=== PATIENT | female | born 1965 | race Caucasian/White ===

== ENCOUNTER 2023-02-09 14:01 | Outpatient (CLI) | payer OTHER, SELFPAY ==
[2023-02-09 14:27] LABS: Basophils Absolute Auto 0.1 K/mm3 (0.0-0.1); Basophils Percent Auto 0.5 % (0.2-1.2); Eosinophils Absolute Auto 0.2 K/mm3 (0-0.3); Eosinophils Percent Auto 1.8 % (0-4.4); Hematocrit 45.3 % (37.0-47.0); Hemoglobin 14.8 g/dL (12.0-15.0); Immature Granulocyte Absolute 0.03 K/mm3 (0.00-0.031); Immature Granulocyte Percent A 0.3 % (0-0.5); Lymphocytes Absolute Auto 2.94 K/mm3 (0.9-3.2); Lymphocytes Percent Auto 30.6 % (18.3-44.2); Mean Corpuscular HGB Conc 32.7 g/dl (32-36); Mean Platelet Volume 11.2 fl (7.4-10.4); Monocytes Absolute Auto 0.8 K/mm3 (0.1-0.6); Neutrophils Absolute Auto 5.7 K/mm3 (1.3-6.7); Neutrophils Percent Auto 58.8 % (45.5-73.1); Platelet Count Result 207 k/mm3 (150-375); Red Blood Count 4.77 M/mm3 (4.2-5.4); Red Cell Distribution Width 13.8 % (11.5-14.5); White Blood Count 9.6 K/mm3 (4.5-10.0)
[2023-02-09 14:32] LABS: Blood Urea Nitrogen 15 mg/dL (8-26); Carbon Dioxide 27 mmol/L (22-30); Chloride 105 mmol/L (98-109); Estimated Glomerular Filt Rate 57; Glucose 150 mg/dL (70-105); Ionized Calcium (POC) 1.19 mmol/L (1.11-1.31); Potassium 4.5 mmol/L (3.5-4.9); Sodium 142 mmol/L (138-146)
[2023-02-09 16:32] LABS: Alanine Aminotransferase 81 U/L (6-35); Albumin Level 4.5 g/dL (3.5-5.1); Alkaline Phosphatase 99 U/L (38-126); Anion Gap 8 mmol/L (8-16); Aspartate Amino Transferase 77 U/L (14-36); Bilirubin,Total 0.8 mg/dL (0.2-1.3); Blood Urea Nitrogen 16 mg/dL (7-17); Calcium 9.4 mg/dL (8.4-10.2); Carbon Dioxide 27 mmol/L (22-30); Chloride 106 mmol/L (98-107); Estimated Glomerular Filt Rate > 60; Glucose 146 mg/dL (65-110); Potassium 4.5 mmol/L (3.4-5.0); Sodium 141 mmol/L (137-145)
== END 2023-02-09 14:02 | disposition home or self-care (01) ==
PROVIDERS: Visit Provider Internal Medicine Hematology & Oncology
DX: D68.61 Antiphospholipid syndrome (principal)
CPT/HCPCS: 36415; 80047; 80053; 85025

== ENCOUNTER 2024-07-15 13:29 | Outpatient (CLI) | payer OTHER, SELFPAY ==
[2024-07-15 13:56] LABS: Basophils Absolute Auto 0.1 K/mm3 (0.0-0.1); Basophils Percent Auto 0.7 % (0.2-1.2); Eosinophils Absolute Auto 0.2 K/mm3 (0-0.3); Eosinophils Percent Auto 2.2 % (0-4.4); Hematocrit 43.2 % (37.0-47.0); Hemoglobin 14.4 g/dL (12.0-15.0); Immature Granulocyte Absolute 0.04 K/mm3 (0.00-0.031); Immature Granulocyte Percent A 0.4 % (0-0.5); Lymphocytes Absolute Auto 3.15 K/mm3 (0.9-3.2); Lymphocytes Percent Auto 30.8 % (18.3-44.2); Mean Corpuscular HGB Conc 33.3 g/dl (32-36); Mean Corpuscular Hemoglobin 31.6 pg (26-34); Mean Corpuscular Volume 94.9 fl (80-100); Mean Platelet Volume 10.6 fl (7.4-10.4); Monocytes Absolute Auto 0.9 K/mm3 (0.1-0.6); Monocytes Percent Auto 8.3 % (2.6-8.5); Neutrophils Absolute Auto 5.9 K/mm3 (1.3-6.7); Neutrophils Percent Auto 57.6 % (45.5-73.1); Platelet Count Result 198 k/mm3 (150-375); Red Blood Count 4.55 M/mm3 (4.2-5.4); Red Cell Distribution Width 13.2 % (11.5-14.5); White Blood Count 10.2 K/mm3 (4.5-10.0)
[2024-07-15 13:59] LABS: Blood Urea Nitrogen 18 mg/dL (8-26); Carbon Dioxide 28 mmol/L (22-30); Chloride 105 mmol/L (98-109); Estimated Glomerular Filt Rate > 60; Glucose 104 mg/dL (70-105); Ionized Calcium (POC) 1.19 mmol/L (1.11-1.31); Potassium 4.3 mmol/L (3.5-4.9); Sodium 143 mmol/L (138-146)
== END 2024-07-15 13:30 | disposition home or self-care (01) ==
LOC: ANHLAB 13:31
PROVIDERS: PCP Nurse Practitioner; Visit Provider Internal Medicine Hematology & Oncology
DX: R76.0 Raised antibody titer (principal)
CPT/HCPCS: 36415; 80047; 85025

== ENCOUNTER 2024-07-23 11:00 | Outpatient (CLI) | payer OTHER, SELFPAY ==
--- OUTSIDE RECORDS SUMMARY | 2024-07-23 12:35 | XMS_ITS | Encounter Summary ---
Author Organization [facility] Address [facility] [place] [address] Care Team Providers Care Powerhouse Oiler Name Role Phone Ewa Spencer COSMETICS AND TOILETRIES SALESPERSON Primary Care Provider [phone] Dia Madera Primary Care Provider [phone] Misha Bishop MD Unavailable [phone] Encounter Details Date Type Department Care Team (Latest Contact Info) Description 01/01/2018 Abstract [facility] Hill Merino MD Social History Tobacco Use Types Packs/Day Years Used Date Smoking Tobacco: Every Day Cigarettes 1 35 Smokeless Tobacco: Never Alcohol Use Standard Drinks/Week Comments Yes 0 (1 standard drink = 0.6 oz pur e alcohol) rarely Comments No Sex and Gender Information Value Date Recorded Sex Assigned at Not on file Legal Sex Female 3:06 PM CDT Gender Identity Not on file Sexual Orientation Not on file documented as of this encounter Plan of Treatment Upcoming Encounters Date Type Department Care Team (Latest Contact Info) Description 01/30/2025 7:30 AM CDT Hospital Encounter [facility] One [place] [facility] [place] [id number] Aaron Mcdonald MD [address] [address] 01/30/2025 7:30 AM CDT - 01/30/2025 8:00 AM CDT Surgery [facility] Endo/[place] [address] Aaron Mcdonald MD [address] [address] COLONOSCOPY SCREENING Scheduled Procedures Name Priority Associated Diagnoses Date/Ti me COLONOSCOPY SCREENING Screening for colon cancer Hx of colonic polyps 01/30/2025 7:30 AM CDT documented as of this encounter Visit Diagnoses Not on filedocumented in this encounter Additional Health Concerns Infection Onset Date Last Indicated Resolved Time COVID-19 Rule Out 03/23/2021 03/23/2021 03/23/2021 9:32 AM LOGISTICS AND PLANNING MANAGER COVID-19 Rule Out 03/23/2021 03/23/2021 03/24/2021 1:28 AM LOGISTICS AND PLANNING MANAGER documented as of this encounter Care Teams Powerhouse Oiler Relationship Specialty Start Date End Date Ewa Spencer NP PCP - General NURSE PRACTITIONER 04/19/17 07/22/19 Dia Maedra APNP [address] [place] [id number] PCP - General NURSE PRACTITIONER 07/23/19 Misha Bishop MD [address] [place] [address] [place] [phone] HEMATOLOGY/ONCOLOGY 12/15/21 documented as of this encounter
--- OUTSIDE RECORDS SUMMARY | 2024-07-23 12:35 | XMS_ITS | Encounter Summary ---
Author Organization [facility] Address [address] [place] [address] Care Team Providers Care Wax Specialist Name Role Phone Unavailable Primary Care Provider Unavailabl e Prior Encounters Date Type Department Care Team Description 05/27/2019 Converted CPS Chart Documents [facility] [address] [place] [address] <No scans attached> 05/27/2019 Converted 13x Documents [facility] [address] [place] [address] <No scans attached> Plan of Treatment Not on file Procedures Procedure Name Priority Date/Time Associated Diagnosis Comments 20 PONTIC - PFG - POST Routine 9 2:00 AM BEDSPREAD INSPECTOR 18 PONTIC - PFG - POST Routine 9 2:00 AM BEDSPREAD INSPECTOR 19 RETAINER CROWN - PFG - POST Routine 04/02/2019 2:00 AM BEDSPREAD INSPECTOR 10 CORE BUILDUP, INCLUDING ANY PINS WHEN REQUIRED Routine 04/02/2019 2:00 AM BEDSPREAD INSPECTOR 3 MOD AMALGAM 3 SURFACE Routine 04/02/20 19 2:00 AM BEDSPREAD INSPECTOR 2 MO AMALGAM 2 SURFACE Routine 9 2:00 AM BEDSPREAD INSPECTOR 18 ENDODONTIC THERAPY, MOLAR TOOTH (EXCLUDING FINAL RESTORATIONIST) Routine 04/02/2019 2:00 AM BEDSPREAD INSPECTOR 14 ENDODONTIC THERAPY, MOLAR TOOTH (EXCLUDING FINAL RESTORATIONIST) Routine 04/02/2019 2:00 AM BEDSPREAD INSPECTOR 10 ENDODONTIC THERAPY, ANTERIOR TOOTH (EXCLUDING FINAL RESTORATIONIST) Routine 04/02/2019 2:00 AM BEDSPREAD INSPECTOR 18 CROWN PFM POST Routine 04/02/2019 2:0 0 AM BEDSPREAD INSPECTOR 15 CROWN PFM POST Routine 04/02/2019 2:0 0 AM BEDSPREAD INSPECTOR 14 CROWN PFM POST Routine 04/02/2019 2:0 0 AM BEDSPREAD INSPECTOR 31 CROWN PFM POST Routine 04/02/2019 2:0 0 AM BEDSPREAD INSPECTOR 30 CROWN PFM POST Routine 04/02/2019 2:0 0 AM BEDSPREAD INSPECTOR ORAL HYGIENE INSTRUCTIONS Routine 2018 2:00 AM BEDSPREAD INSPECTOR TOPICAL APPLICATION OF FLUORIDE VARNISH Routine 04/02/2019 2:00 AM BEDSPREAD INSPECTOR PROPHYLAXIS - ADULT Routine 04/02/2019 2 :00 AM BEDSPREAD INSPECTOR COMPREHENSIVE ORAL EVALUATION - NEW OR ESTABLISHED PATIENT Routine 04/02/2019 2:00 AM BEDSPREAD INSPECTOR PANORAMIC RADIOGRAPHIC IMAGE Routine 04/02/2019 2:00 AM BEDSPREAD INSPECTOR INTRAORAL PHOTO Routine 04/02/2019 2:00 AM BEDSPREAD INSPECTOR INTRAORAL PHOTO Routine 04/02/2019 2:00 AM BEDSPREAD INSPECTOR INTRAORAL PHOTO Routine 04/02/2019 2:00 AM BEDSPREAD INSPECTOR INTRAORAL PHOTO Routine 04/02/2019 2:00 AM BEDSPREAD INSPECTOR Visit Diagnoses Not on file
--- OUTSIDE RECORDS SUMMARY | 2024-07-23 12:35 | XMS_ITS | Clinical Summary ---
Author Organization [facility] Address [address] [place] [address] Care Team Providers Care Airline Lounge Receptionist Name Role Phone Dia Madera Primary Care Provider [phone] Source Comments [facility],non-owned Affiliates and Associated Physician Practices is amultiple site organization consisting of ambulatory clinics and hospital sitesin [place], [place], [place] and [place]. This disclosure is being madepursuant to the Care Everywhere program and may not contain all information available regarding this patient. Last updated 18.[facility] Allergies No known active allergies Medications * Be aware that medications may not be up to date on this document. Alwaysverify current medications with the patient. Medication Sig Dispensed Refills Start Date End Date Status aspirin (Aspirin) 81 MG chew tablet Take 1 (one) tablet by mouth once daily 10/19/2023 Active Trulicity 1.5 MG/0.5ML injection 1.5 (one and one-half) mg every 7 days 10/19/2023 Active Social History Tobacco Use Types Packs/Day Years Used Date Smoking Tobacco: Never Assessed Sex and Gender Information Value Date Recorded Sex Assigned at Not on file Gender Identity Not on file Sexual Orientation Not on file Plan of Treatment Upcoming Encounters Date Type Department Care Team (Late st Contact Info) Description 10/18/2024 2:20 PM CDT Office Visit [facility] - Endocrinology [address] [place] [address], [place] [phone] Josef Qiu MD [address] [place] [address] [place] [address] Health Maintenance Due Date Last Done Comments COLOGUARD (AGES 45-75) - COLON CA SCREENING 1964 COLON MONITORING 1964 COLONOSCOPY - COLON CA SCREENING 1964 CT COLONOGRAPHY - COLON CA SCREENING 1964 Colorectal Cancer Screening 1964 FIT - COLON CA SCREENING 1964 FLEX SIG - COLON CA SCREENING 1964 PAP SMEAR 1964 HIV SCREENING 01/16/1979 HEPATITIS C SCREENING 01/12/1982 DTAP/TDAP/TD VACCINES (1 - Tdap) 01/16/1983 PNEUMOCOCCAL VACCINE 50+ (1 of 2 - PCV) 01/16/1983 PNEUMOCOCCAL VACCINE (1 of 2 - PCV) 01/16/1983 ZOSTER VACCINE (1 of 2) 01/16/2014 COVID-19 VACCINE ( season) 2024 03/12/2021, 07/25/2020, 07/04/2020 INFLUENZA VACCINE (#1) 2024 , 04/29/2021, 01/30/2020, Additional history exists DEPRESSION SCREENING 05/08/2024 MAMMOGRAM 08/17/2025 08/18/2023, 09/2022, 10/27/2020 LIPID TESTING 08/31/2028 09/01/2023, 06/20/2023 Respiratory Syncytial Virus (RSV) Vaccine Pt: or over 60 yrs (1 - 1-dose 75+ series) 01/16/2039 HEPATITIS B VACCINE Aged Out No longe r eligible based on patient's age to complete this topic HIB VACCINE Aged Out No longer eligi ble based on patient's age to complete this topic HPV VACCINE Aged Out No longer eligi ble based on patient's age to complete this topic MENINGOCOCCAL (Group B) VACCINE SHARED DECISION-MAKING Aged Out No longer eligible based on patient's age to complete this topic MENINGOCOCCAL GROUPS A/C/Y/W VACCINE Aged Out No longer eligible based on patient's age to complete this topic Care Teams Airline Lounge Receptionist Relationship Specialty Start Date End Date Dia Madera [address] [place], [place] [phone] PCP - General Nurse Practitioner 10/19/23
--- OUTSIDE RECORDS SUMMARY | 2024-07-23 12:35 | XMS_ITS | Encounter Summary ---
Author Organization [facility] - [facility] Address [address] [place] [address] Care Team Providers Care Steel Pourer Helper Name Role Phone Dia Madera Primary Care Provider [phone] Misha Bishop MD Unavailable [phone] Encounter Details Date Type Department Care Team (Late st Contact Info) Description 06/01/2022 MyCBrightLinet Message Enc [facility] Medical Group Diabetes [facility] Endocrin[place] [address] [place] [address] Gabe Cotton MD Cortisol Social History Tobacco Use Types Packs/Day Years Used Date Smoking Tobacco: Former Cigarettes 1 35 0 02/03/1987 - 02/03/2022 Smokeless Tobacco: Never Comments:Goal is to quit smo nestor by feb 03 Alcohol Use Standard Drinks/Week Comments Yes 0 (1 standard drink = 0.6 oz pur e alcohol) Drink occasionally PHQ-2 Answer Date Recorded PHQ-2 Score - If the patient scores above 3, please move on to questions 3-9 0 02/21/2022 Comments No Sex and Gender Information Value Date Recorded Sex Assigned at Not on file Legal Sex Female 3:06 PM CDT Gender Identity Not on file Sexual Orientation Not on file COVID-19 Exposure Response Date Recorded In the last 10 days, have yo u been in contact with someone who was confirmed or suspected to have Coronavirus/COVID-19? No / Unsure 06/02/2022 2:54 PM DECOMMISSIONING WELL SITE MANAGER documented as of this encounter Plan of Treatment Upcoming Encounters Date Type Department Care Team (Latest Contact Info) Description 01/30/2025 7:30 AM CDT Hospital Encounter [facility] [place] [address] [facility] [address] 01/30/2025 7:30 AM CDT - 01/30/2025 8:[address] [facility] [address] Aaron Mcdonald MD [address] [address] COLONOSCOPY SCREENING Scheduled Procedures Name Priority Associated Diagnoses Date/Ti me COLONOSCOPY SCREENING Screening for colon cancer Hx of colonic polyps 01/30/2025 7:30 AM CDT documented as of this encounter Visit Diagnoses Not on filedocumented in this encounter Additional Health Concerns Assessment Noted Time PHQ-9 Depression Total Score: 7 04/29/20 21 9:48 AM DECOMMISSIONING WELL SITE MANAGER documented as of this encounter Care Teams Steel Pourer Helper Relationship Specialty Start Date End Date Dia Madera APNP [address] [place] [address] PCP - General NURSE PRACTITIONER 07/23/19 Misha Bishop MD [address] [place] [phone] HEMATOLOGY/ONCOLOGY 12/15/21 documented as of this encounter
--- OUTSIDE RECORDS SUMMARY | 2024-07-23 12:35 | XMS_ITS | Encounter Summary ---
Author Organization [facility] Address [facility] [place] [address] Care Team Providers Care Novelty Chain Maker Name Role Phone Ewa Spencer NP Primary Care Provider [phone] Dia Madera Primary Care Provider [phone] Misha Bishop MD Unavailable [phone] Encounter Details Date Type Department Care Team (Late st Contact Info) Description 08/14/2017 Community Orders [facility] EPICCARE LINK Zane Lemus MD [facility] [address] [address] Social History Tobacco Use Types Packs/Day Years [...] Description 01/30/2025 7:30 AM CDT Hospital Encounter [facility] One Day Services [place], [place] [address] Aaron Mcdonald MD [address] [address] 01/30/2025 7:30 AM CDT - 01/30/2025 8:00 AM CDT Surgery [facility] [place] [address] Aaron Mcdonald MD 3 [facility] [address] [place] [address] COLONOSCOPY SCREENING Scheduled Procedures Name Priority Associated Diagnoses Date/Ti me COLONOSCOPY SCREENING Screening for colon cancer Hx of colonic polyps 01/30/2025 7:30 AM CDT documented as of this encounter Visit Diagnoses Not on filedocumented in this encounter Additional Health Concerns Infection Onset Date Last Indicated Resolved Time COVID-19 Rule Out 03/23/2021 03/23/2021 03/23/2021 9:32 AM PHOTOGRAPHER AERIAL COVID-19 Rule Out 03/23/2021 03/23/2021 03/24/2021 1:28 AM PHOTOGRAPHER AERIAL documented as of this encounter Care Teams Novelty Chain Maker Relationship Specialty Start Date End Date Ewa Spencer NP PCP - General NURSE PRACTITIONER 04/19/17 07/22/19 Dia Madera APNP [address] [place] [address] PCP - General NURSE PRACTITIONER 07/23/19 Misha Bishop MD [address] [place] [address] [place] [phone] HEMATOLOGY/ONCOLOGY 12/15/21 documented as of this encounter
--- OUTSIDE RECORDS SUMMARY | 2024-07-23 12:35 | XMS_ITS | Clinical Summary ---
Author Organization [facility] [place] [address] [place] [address] Care Team Providers Care Cable Splicer Helper Name Role Phone Unavailable Primary Care Provider Unavailabl e Social History Tobacco Use Types Packs/Day Years Used Date Smoking Tobacco: Never Assessed Comments Unknown Sex and Gender Information Value Date Recorded Sex Assigned at Not on file Legal Sex Female 5:17 PM PST Gender Identity Not on file Sexual Orientation Not on file Plan of Treatment Not on file
--- OUTSIDE RECORDS SUMMARY | 2024-07-23 12:35 | XMS_ITS | Encounter Summary ---
Author Organization [facility] Address [facility] [place] [address] Care Team Providers Care Event Promoter Name Role Phone Dia Madera Primary Care Provider [phone] Misha Bishop MD Unavailable [phone] Encounter Details Date Type Department Care Team (Latest Contact Info) Description 07/15/2024 Scan HEALTH INFO [facility] Scanned, Doc Med Group Social History Tobacco Use Types Packs/Day Years Used Date Smoking Tobacco: Former Cigarettes Q uit: 02/03/1987 Passive Smoke Exposure: Past Smokeless Tobacco: Never Comments:Quit February 03 a t 9 pm Alcohol Use Standard Drinks/Week Comments Not Currently 0 (1 standard drink = 0.6 oz pur e alcohol) Drink occasionally PHQ-2 Answer Date Recorded Patient Health Questionnaire-2 Score 0 02/05/2024 Comments No Sex and Gender Information Value Date Recorded Sex Assigned at Not on file Legal Sex Female 3:06 PM CDT Gender Identity Not on file Sexual Orientation Not on file documented as of this encounter Plan of Treatment Upcoming Encounters Date Type Department Care Team (Latest Contact Info) Description 01/30/2025 7:30 AM CDT Hospital Encounter [facility] One Day [place], [place] [address] Aaron Mcdonald MD [address] [facility] [address] [place] [phone] 01/30/2025 7:30 AM CDT - 01/30/2025 8:00 AM CDT Surgery [facility] [place]o/[place] [address] Aaron Mcdonald MD [address] [address] COLONOSCOPY SCREENING Scheduled Procedures Name Priority Associated Diagnoses Date/Ti me COLONOSCOPY SCREENING Screening for colon cancer Hx of colonic polyps 01/30/2025 7:30 AM CDT documented as of this encounter Visit Diagnoses Not on filedocumented in this encounter Additional Health Concerns Assessment Noted Time PHQ-9 Depression Total Score: 0 08/31/19 24 1:55 PM CDT documented as of this encounter Care Teams Event Promoter Relationship Specialty Start Date End Date Dia Madera APNP [address] [place] [address] PCP - General NURSE PRACTITIONER 07/23/19 Misha Bishop MD [address] [place] [phone] HEMATOLOGY/ONCOLOGY 12/15/21 documented as of this encounter
--- OUTSIDE RECORDS SUMMARY | 2024-07-23 12:35 | XMS_ITS | Clinical Summary ---
Author Organization [facility] Address [address] [facility] [place] [address] Care Team Providers Care Tile And Mottle Supervisor Name Role Phone Unavailable Primary Care Provider Unavailabl e Allergies Active Allergy Reactions Criticality Noted Date Comments Egg Nausea and Vomiting,Unknown Medium 02/24/20 18 Gluten Nausea and Vomiting,Unknown Medium 07/29/19 18 Medications albuterol sulfate 90 mcg/Actuation inhaler Take 2 Puffs by inhalation every 6 hours as needed. 1 Active cholecalciferol , Vitamin D3, 125 mcg (5,000 unit) Capsule Take 5,000 Units by mouth daily. 0 Active empagliflozin-m etFORMIN (Synjardy) 12.5-1,000 mg tablet 1 Active fluticasone propion-salmete roL (Advair HFA) 115-21 mcg/actuation HFA Aerosol Inhaler 1 Active triamcinolone acetonide (KENALOG) 0.1 % Cream Apply to affected area 2 times daily. 1 Active aspirin (ECOTRIN EC) 81 mg Tablet, Delayed Release (E.C.) Take 81 mg by mouth daily. 2 Active Trulicity 3 mg/0.5 mL injection Inject 3 mg by subcutaneous injection every 7 days. 5 Active Active Problems Problem Noted Date Diagnosed Date Antiphospholipid antibody syndrome 10/08/2021 Encounters Date Type Department Care Team Description 07/21/2024 11:15 AM CDT Ancillary Procedure [facility] [address] [place] [address] Reji Guidry DPM Osteochondroma 07/19/2024 Telephone [facility] [address] [place] [address] Misha Bishop MD Lab Authorization 07/16/2024 External Device Data ST[facility] ABSTRACTION Provider, Abstract 07/16/2024 External Device Data [facility] ABSTRACTION Provider, Abstract 07/16/2024 Orders Only [facility] [address] [place] [address] Misha Bishop MD 07/15/2024 2:15 PM CDT Office Visit [facility] [address] [place] [address] Misha Bishop MD Antiphospholipid antibody positive (Primary Dx) 07/15/2024 External Device Data [facility] ABSTRACTION Provider, Abstract 07/13/2024 External Device Data [facility] ABSTRACTION Provider, Abstract 07/12/2024 External Device Data [facility] ABSTRACTION Provider, Abstract 07/10/2024 External Device Data [facility] ABSTRACTION Provider, Abstract 06/25/2024 External Device Data [facility] ABSTRACTION Provider, Abstract 05/29/2024 External Device Data [facility] ABSTRACTION Provider, Abstract 05/29/2024 External Device Data [facility] ABSTRACTION Provider, Abstract 05/14/2024 External Device Data [facility] ABSTRACTION Provider, Abstract from Last 3 Months Family History Medical History Relation Name Comments Pancreatic Cancer Father Relation Name Status Comments Brother 1 Alive Brother 2 Alive Brother 3 Alive Father metastesized to lung and brain Mother Alive Sister 1 Alive Sister 2 Alive Son 1 Alive Son 2 Alive Social History Tobacco Use Types Packs/Day Years Used Date Smoking Tobacco: Every Day Cigarettes Smokeless Tobacco: Never Tobacco Cessation:Ready to Q uit: Not Asked; Counseling Given: Not Answered Comments:trying to quit Alcohol Use Standard Drinks/Week Comments Yes 0 (1 standard drink = 0.6 oz pur e alcohol) occasional Comments Unknown Sex and Gender Information Value Date Recorded Sex Assigned at Not on file Legal Sex Female 9:28 AM CDT Gender Identity Not on file Sexual Orientation Not on file Last Filed Vital Signs Vital Sign Reading Time Taken Comments Blood Pressure 122/85 07/15/2024 2:07 PM CDT Pulse 99 07/15/2024 2:07 PM CDT Temperature 36.8 C (98.3 F) 07/15/2024 2:07 PM CDT Respiratory Rate 16 07/15/2024 2:07 PM CDT Oxygen Saturation 97% 07/15/2024 2:07 PM CDT Inhaled Oxygen Concentration - - Weight 63.6 kg (140 lb 3.2 oz) 07/15/2024 2:07 P M CDT Height 157.5 cm (5' 2) 10/08/2021 10:33 AM CDT Body Mass Index 25.64 10/08/2021 10:33 AM CDT Plan of Treatment Upcoming Encounters Date Type Department Care Team (Late st Contact Info) Description 08/06/2024 4:30 PM CDT Telephone Check Up [facility] [address] [place] [address] Misha Bishop MD [address] [place] [address] Health Maintenance Due Date Last Done Comments DIABETES ANNUAL FOOT EXAM 01/16/1982 DIABETES MICROALBUMIN ANNUAL SCREEN 01/16/1982 LDL CHOLESTEROL ANNUAL 01/16/1982 CERVICAL CANCER SCREENING 01/16/1994 DIABETES ANNUAL RETINAL EXAM 06/30/2007 06/30/2006 FIT-DNA Q 3 years 01/16/2009 FIT/FOBT Q 1 year 01/16/2009 Flex Sig/CT Colonography Q 5 years 01/16/2009 ZOSTER VACCINE (1 of 2) 01/16/2014 INFLUENZA VACCINE (#1) 2023 , 01/30/2020, 02/01/2016, Additional history exists COVID-19 Vaccine ( season) 2024 03/12/2021, 07/25/2020, 07/04/2020 RSV VACCINE (60+ or ) (1 - Risk 60-74 years 1-dose series) 2024 BREAST CANCER SCREENING 08/17/2024 08/18/19 24, 08/10/2022, 10/27/2020, Additional history exists DIABETES HBA1C Q 6 MONTHS 10/11/2024 04/12/2024 COLORECTAL SCREENING 02/25/2025 02/25/2015 Colorectal Cancer Screening 02/25/2025 DTAP/TDAP/TD VACCINES (3 - Td or Tdap) 06/03/2026 06/03/2016, 05/08/2016 HEPATITIS B VACCINES Aged Out No long er eligible based on patient's age to complete this topic Procedures Procedure Name Priority Date/Time Associated Diagnosis Comments MRI FOOT WO CONTRAST LEFT Routine 07/21/2024 12:17 PM CDT Osteochondroma BASIC METABOLIC PANEL Routine 07/15/2024 10:32 AM CDT from Last 3 Months Results * MRI FOOT WO CONTRAST LEFT (07/21/2024 12:17 PM CDT) Anatomical Region Laterality Modality Ankle / Foot Magnetic Resonan ce 07/21/2024 12:1 7 PM CDT Impressions 07/22/2024 9:07 AM CDT IMPRESSION: 1. 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 Consider a follow-up radiograph in six months to document stability. 2. Low-grade stress fracture of the second metatarsal at the head neck junction. This corresponds to the skin marker. 3. Second metatarsophalangeal joint osteoarthritis. 4. Fourth tarsometatarsal joint osteoarthritis. Narrative 07/22/2024 9:07 AM CDT Examination: MRI foot without contrast left HISTORY: Osteochondroma. TECHNIQUE: Multiple and multisequence noncontrast MRI of the left forefoot. FINDINGS: No comparisons. There is a 19.7 x 5.6 x 4.1 mm in hyperintense lesion in the midshaft of the first metatarsal. Given the patient's history this is most likely sales representative of a low-grade chondroid lesion such as enchondroma radiographic comparison would be helpful to confirm the internal architecture. There is mild fourth proximal metatarsal bone marrow edema at the fourth tarsometatarsal joint consistent with osteoarthritis. 4. Findings of the skin marker there is osteoarthritis of the second metatarsophalangeal joint with a small joint effusion. There is also periosteal bone marrow edema at this level and a low-grade stress fracture is probable. The bone marrow and cortex have normal signal at this location. Intrinsic muscles of the foot are normal. Sensory flexor tendons are normal. There is mild first metatarsal phalangeal joint osteoarthritis. Procedure Note Natalio Sheth MD - 07/22/2024 Examination: MRI foot without contrast left HISTORY: Osteochondroma. TECHNIQUE: Multiple and multisequence noncontrast MRI of the left forefoot. FINDINGS: No comparisons. There is a 19.7 x 5.6 x 4.1 mm in hyperintense lesion in the midshaft of the first metatarsal. Given the patient's history this is most likely sales representative of a low-grade chondroid lesion such as enchondroma radiographic comparison would be helpful to confirm the internal architecture. There is mild fourth proximal metatarsal bone marrow edema at the fourth tarsometatarsal joint consistent with osteoarthritis. 4. Findings of the skin marker there is osteoarthritis of the second metatarsophalangeal joint with a small joint effusion. There is also periosteal bone marrow edema at this level and a low-grade stress fracture is probable. The bone marrow and cortex have normal signal at this location. Intrinsic muscles of the foot are normal. Sensory flexor tendons are normal. There is mild first metatarsal phalangeal joint osteoarthritis. IMPRESSION: 1. 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 Consider a follow-up radiograph in six months to document stability. 2. Low-grade stress fracture of the second metatarsal at the head neck junction. This corresponds to the skin marker. 3. Second metatarsophalangeal joint osteoarthritis. 4. Fourth tarsometatarsal joint osteoarthritis. Reji DOYLEM MR ORDERABLES Paula l Result * BASIC METABOLIC PANEL (07/15/2024 10:32 AM CDT) Blood Misha Bishop MD CHEMISTRY ORDERABLES Final Resu lt from Last 3 Months Insurance [facility]
--- OUTSIDE RECORDS SUMMARY | 2024-07-23 12:36 | XMS_ITS | Encounter Summary ---
Author Organization [facility] Address [facility] [place] [address] Care Team Providers Care Fur Polisher Name Role Phone Dia Madera Primary Care Provider [phone] Misha Bishop MD Unavailable [phone] Encounter Details Date Type Department Care Team (Late st Contact Info) Description 08/02/2023 Push Health Message Enc [facility] . [place] [address] [place], [place] [id number] [facility] Schedule Appointment: Overdue Physical Social History Tobacco Use Types Packs/Day Years Used Date Smoking Tobacco: Former Cigarettes Q uit: 02/03/1987 Smokeless Tobacco: Never Comments:Quit February 03 a t 9 pm Alcohol Use Standard Drinks/Week Comments Not Currently 0 (1 standard drink = 0.6 oz pur e alcohol) Drink occasionally PHQ-2 Answer Date Recorded Patient Health Questionnaire-2 Score 0 06/27/2022 Comments No Sex and Gender Information Value Date Recorded Sex Assigned at Not on file Legal Sex Female 3:06 PM CDT Gender Identity Not on file Sexual Orientation Not on file documented as of this encounter Plan of Treatment Upcoming Encounters Date Type Department Care Team (Latest Contact Info) Description 01/30/2025 7:30 AM CDT Hospital Encounter [facility] [place] [address] Aaron Mcdonald MD 3 [facility] [address] [place] [address] 01/30/2025 7:30 AM CDT - 01/30/2025 8:00 AM CDT Surgery [facility] Endo/[place] [address] Aaron Mcdonald MD 3 [facility] [address] [place] [address] COLONOSCOPY SCREENING Scheduled Procedures Name Priority Associated Diagnoses Date/Ti me COLONOSCOPY SCREENING Screening for colon cancer Hx of colonic polyps 01/30/2025 7:30 AM CDT documented as of this encounter Visit Diagnoses Not on filedocumented in this encounter Additional Health Concerns Assessment Noted Time PHQ-9 Depression Total Score: 8 06/27/19 23 3:09 PM STORE TEAM LEADER documented as of this encounter Care Teams Fur Polisher Relationship Specialty Start Date End Date Dia Madera APNP [address] [place] [address] PCP - General NURSE PRACTITIONER 07/23/19 Misha Bishop MD [address] [facility] [address] [place] [address] HEMATOLOGY/ONCOLOGY 12/15/21 documented as of this encounter
--- OUTSIDE RECORDS SUMMARY | 2024-07-23 12:36 | XMS_ITS | Encounter Summary ---
Author Organization [facility] Address [facility] [place] [address] Care Team Providers Care Offset Second Press Operator Name Role Phone Dia Madera Primary Care Provider [phone] Misha Bishop MD Unavailable [phone] Encounter Details Date Type Department Care Team (Late st Contact Info) Description 06/26/2023 MyChart Message Enc [facility] Medical [facility] Family and Sports Medicine - [place] [address] [place] [address] Dia Madera APNP [address] [place] [address] Nephrology Referral Social History Tobacco Use Types Packs/Day Years [...] 01/30/2025 7:30 AM CDT Hospital Encounter [facility] [place] [address] [facility] [address] 01/30/2025 7:30 AM CDT - 01/30/2025 8:00 AM CDT Surgery [facility] [place] [address] [facility]cdonald MD [address] [facility] [address] COLONOSCOPY SCREENING Scheduled Procedures Name Priority Associated Diagnoses Date/Ti me COLONOSCOPY SCREENING Screening for colon cancer Hx of colonic polyps 01/30/2025 7:30 AM CDT documented as of this encounter Visit Diagnoses Not on filedocumented in this encounter Additional Health Concerns Assessment Noted Time PHQ-9 Depression Total Score: 8 06/27/19 23 3:09 PM SAS ADMINISTRATOR documented as of this encounter Care Teams Offset Second Press Operator Relationship Specialty Start Date End Date Dia Madera APNP [address] [place] [address] PCP - General NURSE PRACTITIONER 07/23/19 Misha Bishop MD [address] [place] [address] [place] [phone] HEMATOLOGY/ONCOLOGY 12/15/21 documented as of this encounter
--- OUTSIDE RECORDS SUMMARY | 2024-07-23 12:36 | XMS_ITS | Encounter Summary ---
Author Organization [facility] Address [facility] [place] [address] Care Team Providers Care Margarine Churn Operator Name Role Phone Dia Madera Primary Care Provider [phone] Misha Bishop MD Unavailable [phone] Encounter Details Date Type Department Care Team (Late st Contact Info) Description 04/16/2024 Jibot Message Enc [facility] Medical [facility] Family and Sports Medicine - [place] [address] [place] [address] Dia Madera APNP [address] [place] [address] Posting of results Social History Tobacco Use Types Packs/Day Years [...] Encounter [facility] [place] [address] Aaron Mcdonald MD [address] [address] 01/30/2025 7:30 AM CDT - 01/30/2025 8:00 AM CDT Surgery [facility] [place] [address] Aaron Mcdonald MD [address] [address] COLONOSCOPY SCREENING Scheduled Procedures Name Priority Associated Diagnoses Date/Ti me COLONOSCOPY SCREENING Screening for colon cancer Hx of colonic polyps 01/30/2025 7:30 AM CDT documented as of this encounter Visit Diagnoses Not on filedocumented in this encounter Additional Health Concerns Assessment Noted Time PHQ-9 Depression Total Score: 0 08/31/19 24 1:55 PM CDT documented as of this encounter Care Teams Margarine Churn Operator Relationship Specialty Start Date End Date Dia Madera APNP [address] [place] [address] PCP - General NURSE PRACTITIONER 07/23/19 Misha Bishop MD [address] [place] [phone] HEMATOLOGY/ONCOLOGY 12/15/21 documented as of this encounter
--- OUTSIDE RECORDS SUMMARY | 2024-07-23 12:36 | XMS_ITS | Encounter Summary ---
Author Organization [facility] Address [facility] [place] [address] Care Team Providers Care Senior Administrative Services Officer Name Role Phone Dia MaderaOBEY Primary Care Provider [phone] Misha Bishop MD Unavailable [phone] Encounter Details Date Type Department Care Team (Late st Contact Info) Description 06/22/[address] Smarter Learn [employer] [address] [facility] Family and Sports Medicine - [place] [address] [place] [address] [facility] Provider Ozempic Social History Tobacco Use Types Packs/Day Years [...] Description 01/30/2025 7:30 AM CDT Hospital Encounter [facility] [place] [address] Aaron Mcdonald MD [address] [address] 01/30/2025 7:30 AM CDT - 01/30/2025 8:00 AM CDT Surgery [facility] Endo/[place] [address] Aaron Mcdonald MD [address] [address] COLONOSCOPY SCREENING Scheduled Procedures Name Priority Associated Diagnoses Date/Ti me COLONOSCOPY SCREENING Screening for colon cancer Hx of colonic polyps 01/30/2025 7:30 AM CDT documented as of this encounter Visit Diagnoses Not on filedocumented in this encounter Additional Health Concerns Assessment Noted Time PHQ-9 Depression Total Score: 8 06/27/19 23 3:09 PM FLAT KNITTER HELPER documented as of this encounter Care Teams Senior Administrative Services Officer Relationship Specialty Start Date End Date Dia Madera APNP [address] [place] [address] PCP - General NURSE PRACTITIONER 07/23/19 Misha Bsihop MD [facility] [address] HEMATOLOGY/ONCOLOGY 12/15/21 documented as of this encounter
--- OUTSIDE RECORDS SUMMARY | 2024-07-23 12:36 | XMS_ITS | Clinical Summary ---
Author Organization [facility] at [facility] Address [address] [place] [address] Care Team Providers Care Pharmacy Services Director Name Role Phone Ewa Spencer NP Primary Care Provider [phone] Allergies Active Allergy Reactions Criticality Noted Date Comments Egg Stomach upset,Nausea And Vomiting,Unknown Medium 02/23/2018 Gluten Stomach upset,Nausea And Vomiting,Unknown Medium 07/28/2017 Medications acetaminophen (TYLENOL) 500 mg tablet Take by mouth 5 Active albuterol HFA (PROVENTIL HFA,VENTOLIN HFA,PROAIR HFA) 90 mcg/actuation inhaler Inhale 2 puffs every 6 (six) hours as needed 1 Active azelastine (ASTELIN) 137 mcg (0.1 %) nasal spray Administer 2 sprays into affected nostril(s) 2 (two) times a day 1 Active cholecalciferol (VITAMIN D-3) 5,000 unit capsule Take 5,000 Units by mouth daily 0 Active cyclobenzaprine (FLEXERIL) 5 mg tablet Take 5 mg by mouth 2 (two) times a day as needed 1 Active escitalopram (LEXAPRO) 10 mg tablet Take 10 mg by mouth daily 0 Active ketoconazole (NIZORAL) 2 % cream 1 Active meloxicam (MOBIC) 15 mg tablet Take 15 mg by mouth daily as needed Active metFORMIN (GLUCOPHAGE) 500 mg tablet Take 500 mg by mouth 2 times daily 0 Active triamcinolone (KENALOG) 0.1 % cream Apply topically 2 (two) times a day 1 Active multivitamin tablet,chewable Indications:gum mies Take by mouth Active varenicline (CHANTIX) 1 mg tabletIndicatio ns:Smoking Cessation Take 1 tablet (1 mg total) by mouth 2 (two) times a day Take with full glass of water. 60 tablet 1 1 Active Synjardy 12.5-1,000 mg tablet 2 Active fluconazole (DIFLUCAN) 150 mg tablet 2 Active fluticasone propion-salmete roL (ADVAIR HFA) 115-21 mcg/actuation inhaler Inhale 2 puffs 2 (two) times a day 1 Active varenicline (CHANTIX PEGGY) 0.5 mg (11)- 1 mg (42) tablet Use as directed on package instructions; try to quit smoking after 1 week. 42 tablet 2 Active varenicline (CHANTIX) 1 mg tabletIndicatio ns:Smoking Cessation Take 1 tablet (1 mg total) by mouth 2 (two) times a day Take with full glass of water. 60 tablet 4 2 Active clonazePAM (KlonoPIN) 0.5 mg tabletIndicatio ns:REM sleep behavior disorder Take 1 tablet (0.5 mg total) by mouth nightly 90 tablet 3 2 Active Active Problems Problem Noted Date Diagnosed Date REM sleep behavior disorder 06/17/2021 Assessment & Plan (05/23/2022 2:03 PM SUSPENSION CORD TIER): Patient continue clonazepam 0.5 mg p.o. Q bedtime. Assessment & Plan (02/08/2022 3:43 PM CDT): Patient continue clonazepam 0.5 mg p.o. Q bedtime. Assessment & Plan (08/16/2021 3:11 PM CDT): Patient continue clonazepam 0.5 mg p.o. Q bedtime. Assessment & Plan (06/17/2021 4:24 PM SUSPENSION CORD TIER): I have ordered Klonopin 0.5 mg at bedtime to see if this helps with the sleepwalking and sleep eating. This medication may also make her drowsy enough to help with the insomnia symptoms CHUN (obstructive sleep apnea) 02/15/2021 Assessment & Plan (05/23/2022 2:03 PM SUSPENSION CORD TIER): I did send an order over to [employer] to send us a copy of her compliance report. Assessment & Plan (02/08/2022 4:15 PM CDT): The patient is willing to resume the use of her CPAP. Assessment & Plan (08/16/2021 3:10 PM CDT): Patient continue to wear her CPAP at 6 cm water pressure while sleeping. Patient's DME is [employer]. Assessment & Plan (06/17/2021 4:25 PM SUSPENSION CORD TIER): Due to the patient stating that her pressure seems to be too high, I have decreased the pressure to 6 cm water pressure. The patient denied need for supplies. DME company [employer]. I have also ordered the patient to be refitted for mask to see if this may help with her compliance. The patient was educated on the need to wear the CPAP machine at least 4 hours a night on 70% of the nights. Assessment & Plan (02/15/2021 4:01 PM CDT): The patient is scheduled for nocturnal polysomnogram CPAP titration study on March 26. The patient will begin CPAP therapy after that study is completed. Primary insomnia 09/28/2020 Assessment & Plan (05/23/2022 2:01 PM SUSPENSION CORD TIER): The patient states that her sleeping has improved since she has stop smoking. Assessment & Plan (02/08/2022 4:14 PM CDT): The patient states that her sleeping has improved since she has stop smoking. Assessment & Plan (08/16/2021 3:11 PM CDT): The patient was asked to cut out her naps. Assessment & Plan (06/17/2021 4:25 PM SUSPENSION CORD TIER): Patient will continue with cognitive behavior therapy for insomnia. Patient was educated that CPAP therapy may improve insomnia symptoms. Assessment & Plan (02/15/2021 4:00 PM CDT): The patient will continue with cognitive behavior therapy and start CPAP therapy after her nocturnal polysomnogram. This should improve her insomnia. Assessment & Plan (10/29/2020 3:35 PM CDT): The patient continues to have insomnia despite implementing cognitive behavioral therapy. Hopefully, decreasing her nicotine intake will also help the insomnia. Her sister told her on a recent vacation that she is snoring and I will proceed with a nocturnal polysomnogram with a split night protocol if necessary and no MSLT. Assessment & Plan (09/28/2020 11:27 AM CDT): The patient states that she did sleep will recently on a vacation. Stress may be playing a part in her insomnia. We did discuss cognitive behavioral therapy and I recommended trying to quit smoking and to stop using caffeine. I also recommended starting an exercise program. I did give her a brochure that is published by the [place] [employer] regarding understanding insomnia. She will follow-up here in 1 month. Personal history of tobacco use 09/28/2020 Assessment & Plan (05/23/2022 2:02 PM SUSPENSION CORD TIER): The patient did stop smoking on January. I have ordered another CT scan for after April 02, 2023. Assessment & Plan (02/08/2022 4:15 PM CDT): The patient did stop smoking on February 03. The patient did not get her screening CT scan completed in November. I did place another order in the patient is going to get it done soon. Assessment & Plan (08/16/2021 3:13 PM CDT): Chantix was reordered. The patient is aware there was a recall in the past but there may be a new lot that has been made that the patient would be able to take. The patient was encouraged to decrease her smoking end goal to stop totally. The patient will complete a CT scan of the chest due to her smoking history at the end of November. Assessment & Plan (06/17/2021 4:26 PM SUSPENSION CORD TIER): The patient obtained a lung cancer screening CT at [place], we are waiting the results. The patient was encouraged to decrease the number of cigarettes use per day with ultimate goal of quitting. The patient was also provided options for alternative therapy to quit smoking Assessment & Plan (02/15/2021 4:00 PM CDT): The patient was educated on the need to decrease the number of cigarette usage per day with ultimate goal of quitting. The patient is going to continue with this support group for tobacco cessation. Assessment & Plan (10/29/2020 3:35 PM CDT): The patient would like to try to quit smoking and I have ordered the Chantix starter pack and continuation pack for her to use. She will contact CT scheduling to arrange the screening chest CT. Assessment & Plan (09/28/2020 11:27 AM CDT): The patient has a 30 pack-year history of smoking and is interested in the chest CT lung cancer screening program. I will order a chest CT. Wheezing 09/28/2020 Assessment & Plan (05/23/2022 2:03 PM SUSPENSION CORD TIER): Patient continue to use Advair one puff twice a day. Patient continue to use her albuterol inhaler as needed up to 4 times a day for shortness of breath. Assessment & Plan (02/08/2022 3:43 PM CDT): Patient continue to use Advair one puff twice a day. Patient continue to use her albuterol inhaler as needed up to 4 times a day for shortness of breath. Assessment & Plan (08/16/2021 3:13 PM CDT): Patient continue to use her Advair one puff twice a day. Patient continue to use her albuterol inhaler as needed up to 4 times a day for shortness of breath. Assessment & Plan (02/15/2021 4:00 PM CDT): The patient states that she does have a rare occasional wheezing. She denies shortness of breath or cough at this time. The patient is going to attempt to decrease the number cigarette use to see if this might help with her symptoms. A methacholine challenge will be considered in the future. Assessment & Plan (10/29/2020 3:36 PM CDT): The patient states that she does occasionally wheeze but never has shortness of breath. I will hold off on a methacholine challenge at this point since she is asymptomatic and is going to try to quit smoking. Assessment & Plan (09/28/2020 11:26 AM CDT): The patient has a 30 pack year history of smoking and wheezing. I will order full PFTs with a 6 minutes walk test. Immunizations Immunization Administration Dates Next Due Influenza, Quadrivalent, Spl it, Intramuscular 03/04/2019 Influenza, Quadrivalent, Spl it, Preservative Free, Intramuscular 01/30/2020,03/04/2019,02/28/2017,04/03 Pfizer SARS-CoV-2 Monovalent Vaccination (12+ Yrs) PURPLE 07/25/2020,07/04/2020 Pneumococcal Conjugate PCV 13 09/18/2019 Tdap 05/08/2016 Medical History Medical History Date Comments Diabetes (HCC) Nasal congestion Social History Tobacco Use Types Packs/Day Years Used Date Smoking Tobacco: Former Cigarettes Smokeless Tobacco: Former Quit: 02/03/2022 Tobacco Cessation:Counseling Given: Not Answered AUDIT-C Answer Date Recorded Q1: How often do you have a drink containing alc ohol? Monthly or less 08/16/2021 Average Number of Drinks Not on file 022 Q3: How often do you have si x or more drinks on one occasion? Never 08/16/2021 Personal Safety Answer Date Recorded Getting School Help Needed Not on file 04/21 Comments Unknown Sex and Gender Information Value Date Recorded Sex Assigned at Not on file Legal Sex Female 12:19 AM SUSPENSION CORD TIER Gender Identity Not on file Sexual Orientation Not on file Obstetrics History Last Filed Vital Signs Vital Sign Reading Time Taken Comments Blood Pressure 110/78 05/23/2022 1:29 PM SUSPENSION CORD TIER Pulse 86 05/23/2022 1:29 PM SUSPENSION CORD TIER Temperature 36.1 C (97 F) 05/23/2022 1:29 PM SUSPENSION CORD TIER Respiratory Rate 18 05/23/2022 1:29 PM SUSPENSION CORD TIER Oxygen Saturation 97% 05/23/2022 1:29 PM SUSPENSION CORD TIER Inhaled Oxygen Concentration - - Weight 65.3 kg (144 lb) 05/23/2022 1:29 PM SUSPENSION CORD TIER Height 157.5 cm (5' 2) 05/23/2022 1:29 PM SUSPENSION CORD TIER Body Mass Index 26.34 05/23/2022 1:29 PM SUSPENSION CORD TIER Plan of Treatment Health Maintenance Due Date Last Done Comments Breast Cancer Screening-Mammogram 1964 Cervical Cancer Screening 1964 Colon Cancer Screening-Colonoscopy 1965 Depression Screening 1964 Hepatitis C Screening 1964 Hepatitis B Screening 01/16/1982 Regular Well Visit/Exam 18-64 01/16/1982 Zoster Vaccine (1 of 2) 01/16/2014 Covid-19 Vaccine (3 - 2023- season) 2024 07/25/2020, 07/04/2020 Influenza Vaccine (#1) 2024 , 04/29/2021, 01/30/2020, Additional history exists DTaP/Tdap/Td Vaccine (2 - Td or Tdap) 05/08/2026 05/08/2016 Pneumococcal vaccine <65 Aged Out 09/18/2019 No longer eligible based on patient's age to complete this topic Insurance [facility] Care Teams Pharmacy Services Director Relationship Specialty Start Date End Date Ewa Spencer NP [address], [place] [id number] PCP - General 03/10/19
--- OUTSIDE RECORDS SUMMARY | 2024-07-23 12:36 | XMS_ITS | Referral Summary ---
Author Organization [facility] Address [address] [place] [address] Care Team Providers Care Rooming House Keeper Name Role Phone Ewa Spencer NP Primary Care Provider [phone] Allergies Active Allergy Reactions Criticality Noted Date [...] 06/17/2021 Assessment & Plan (05/23/2022 2:03 PM INTERVENTIONAL TECH): Patient continue clonazepam 0.5 mg p.o. Q bedtime. Assessment & Plan (02/08/2022 3:43 PM CDT): Patient continue clonazepam 0.5 mg p.o. Q bedtime. Assessment & Plan (08/16/2021 3:11 PM CDT): Patient continue clonazepam 0.5 mg p.o. Q bedtime. Assessment & Plan (06/17/2021 4:24 PM INTERVENTIONAL TECH): I have ordered Klonopin 0.5 mg at bedtime to see if this helps with the sleepwalking and sleep eating. This medication may also make her drowsy enough to help with the insomnia symptoms CHUN (obstructive sleep apnea) 02/15/2021 Assessment & Plan (05/23/2022 2:03 PM INTERVENTIONAL TECH): I did send an order over to [...] care. Assessment & Plan (06/17/2021 4:25 PM INTERVENTIONAL TECH): Due to the patient stating that her pressure seems to be too high, I have decreased the pressure to 6 cm water pressure. The patient denied need for supplies. DME company [employer]. I have also ordered the patient to [...] 09/28/2020 Assessment & Plan (05/23/2022 2:01 PM INTERVENTIONAL TECH): The patient states that her sleeping has improved since she has stop smoking. Assessment & Plan (02/08/2022 4:14 PM CDT): The patient states that her sleeping has improved since she has stop smoking. Assessment & Plan (08/16/2021 3:11 PM CDT): The patient was asked to cut out her naps. Assessment & Plan (06/17/2021 4:25 PM INTERVENTIONAL TECH): Patient will continue with cognitive behavior therapy [...] a brochure that is published by the [place] [employer] regarding understanding insomnia. She will follow-up here in 1 month. Personal history of tobacco use 09/28/2020 Assessment & Plan (05/23/2022 2:02 PM INTERVENTIONAL TECH): The patient did stop smoking on January. [...] November. Assessment & Plan (06/17/2021 4:26 PM INTERVENTIONAL TECH): The patient obtained a lung cancer screening CT at [place], we are waiting the results. The patient [...] 09/28/2020 Assessment & Plan (05/23/2022 2:03 PM INTERVENTIONAL TECH): Patient continue to use Advair one puff [...] Pneumococcal Conjugate PCV 13 09/18/2019 Tdap 05/08/2016 Social History Tobacco Use Types Packs/Day Years [...] on file Legal Sex Female 12:19 AM INTERVENTIONAL TECH Gender Identity Not on file Sexual Orientation Not on file Last Filed Vital Signs Vital Sign Reading Time Taken Comments Blood Pressure 110/78 05/23/2022 1:29 PM INTERVENTIONAL TECH Pulse 86 05/23/2022 1:29 PM INTERVENTIONAL TECH Temperature 36.1 C (97 F) 05/23/2022 1:29 PM INTERVENTIONAL TECH Respiratory Rate 18 05/23/2022 1:29 PM INTERVENTIONAL TECH Oxygen Saturation 97% 05/23/2022 1:29 PM INTERVENTIONAL TECH Inhaled Oxygen Concentration - - Weight 65.3 kg (144 lb) 05/23/2022 1:29 PM INTERVENTIONAL TECH Height 157.5 cm (5' 2) 05/23/2022 1:29 PM INTERVENTIONAL TECH Body Mass Index 26.34 05/23/2022 1:29 PM INTERVENTIONAL TECH Plan of Treatment Not on file Insurance Care Teams Rooming House Keeper Relationship Specialty Start Date End Date Ewa Spencer NP [address] [facility] [place] [address] PCP - General 03/10/19
--- OUTSIDE RECORDS SUMMARY | 2024-07-23 12:36 | XMS_ITS | Encounter Summary ---
Author Organization [facility] Address [facility] [place] [address] Care Team Providers Care Mat Sewer Name Role Phone Dia Madera Primary Care Provider [phone] Misha Bishop MD Unavailable [phone] Encounter Details Date Type Department Care Team (Late st Contact Info) Description 07/18/2023 24Symbols Message Enc [facility] Pediatrics . [place] [address], [place] [id number] [facility] Provider Schedule Appointment: Annual Physical Social History Tobacco Use Types Packs/Day [...] Description 01/30/2025 7:30 AM CDT Hospital Encounter [facility] [place] [address] Aaron Mcdonald MD [address] [facility] [address] [place] [address] 01/30/2025 7:30 AM CDT - 01/30/2025 8:00 AM CDT Surgery [facility] Endo/[place] [address] Aaron Mcdonald MD [address] [facility] [address] [place] [address] COLONOSCOPY SCREENING Scheduled Procedures Name Priority Associated Diagnoses Date/Ti me COLONOSCOPY SCREENING Screening for colon cancer Hx of colonic polyps 01/30/2025 7:30 AM CDT documented as of this encounter Visit Diagnoses Not on filedocumented in this encounter Additional Health Concerns Assessment Noted Time PHQ-9 Depression Total Score: 8 06/27/19 23 3:09 PM STORE DETECTIVE documented as of this encounter Care Teams Mat Sewer Relationship Specialty Start Date End Date Dia Madera APNP [address] [place] [address] PCP - General NURSE PRACTITIONER 07/23/19 Misha Bishop MD [address] [facility] [address] [place] [id number] HEMATOLOGY/ONCOLOGY 12/15/21 documented as of this encounter
--- OUTSIDE RECORDS SUMMARY | 2024-07-23 12:36 | XMS_ITS | Encounter Summary ---
Author Organization [facility] Address [address] [place] [address] Care Team Providers Care Java User Interface Developer Name Role Phone Dia Madera Primary Care Provider [phone] Misha Bishop MD Unavailable [phone] Encounter Details Date Type Department Care Team (Late st Contact Info) Description 08/08/[address] [facility] Family [facility] - [place] [address] [place] [address] Dia Madera APNP [address] [place] [address] UTI Social History Tobacco Use Types Packs/Day Years [...] Description 01/30/2025 7:30 AM CDT Hospital Encounter [facility] [place] [address] [facility]cd[facility] [address] 01/30/2025 7:30 AM CDT - 01/30/2025 8:00 AM CDT Surgery [place] [facility] [place] [address] Aaron Mcdonald MD [facility] [address] COLONOSCOPY SCREENING Scheduled Procedures Name Priority Associated Diagnoses Date/Ti me COLONOSCOPY SCREENING Screening for colon cancer Hx of colonic polyps 01/30/2025 7:30 AM CDT documented as of this encounter Visit Diagnoses Not on filedocumented in this encounter Additional Health Concerns Assessment Noted Time PHQ-9 Depression Total Score: 8 06/27/19 23 3:09 PM [employer] documented as of this encounter Care Teams Java User Interface Developer Relationship Specialty Start Date End Date Dia Madera APNP [address] [place] [address] PCP - General NURSE PRACTITIONER 07/23/19 Misha Bishop MD [address] [place] [address] [place] [id number] HEMATOLOGY/ONCOLOGY 12/15/21 documented as of this encounter
--- OUTSIDE RECORDS SUMMARY | 2024-07-23 12:36 | XMS_ITS | Clinical Summary ---
Author Organization [facility] Address [address] [place] [address] Care Team Providers Care Grey Percher Name Role Phone Tamela Madera VJ Primary Care Provider [phone] Misha Bishop MD Unavailable [phone] Allergies Active Allergy Reactions Criticality Noted Date Comments Egg-Derived Products GI Upset 09/15/2017 Gluten Meal Nausea and Vomiting 07/28/2017 Medications Cholecalciferol (VITAMIN D3) 50 MCG (1999) Tab 1 Active aspirin EC (ECOTRIN) 81 MG tablet Take 1 tablet (81 mg total) by mouth daily. 2 Active pantoprazole EC (PROTONIX) 40 MG tabletIndicatio ns:Gastroesopha geal reflux disease without esophagitis Take 1 tablet (40 mg total) by mouth daily. 90 tablet 3 2 Active albuterol sulfate HFA 108 (90 Base) MCG/ACT inhalerIndicati ons:Seasonal asthma (HHS/HCC) Inhale 2 puffs into the lungs every 6 (six) hours as needed for Wheezing. 18 g 1 4 Active dulaglutide (TRULICITY) 1.5 MG/0.5ML injectionIndica tions:Type 2 diabetes mellitus with stage 2 chronic kidney disease, without long-term current use of insulin ([facility] HHS/HCC) Inject 1.5 mg into the skin once a week. 6.5 mL 3 4 Active ketoconazole (NIZORAL) 2 % creamIndication s:Fungal skin disease Apply topically daily. 30 g 2 4 Active azithromycin (ZITHROMAX) 500 mg tabletIndicatio ns:Non-recurren t acute serous otitis media of right ear Take 1 tablet (500 mg total) by mouth daily. 5 tablet 5 Active predniSONE (DELTASONE) 10 mg tabletIndicatio ns:Non-recurren t acute serous otitis media of right ear Start 60 mg today and decrease by one tablet each day until complete. 21 tablet 5 Active dulaglutide (TRULICITY) 3 MG/0.5ML injectionIndica tions:Type 2 diabetes mellitus with hyperglycemia, without long-term current use of insulin ([facility]) Inject 3 mg into the skin once a week. 6 mL 3 5 Active Sod Picosulfate-Mag Ox-Cit Acd (CLENPIQ) 10-3.5-12 MG-GM -GM/175ML SolutionIndicat ions:Screening for colon cancer,Hx of colonic polyps Take 175 mLs by mouth 2 (two) times a day. Per GI instructions 350 mL 5 Active Active Problems Problem Noted Date Diagnosed Date Hx of colonic polyps 02/05/2024 Antiphospholipid syndrome ([facility]) 10/08/2021 REM sleep behavior disorder 06/17/2021 Overview (09/09/2021): Last Assessment & Plan: Patient continue clonazepam 0.5 mg p.o. Q bedtime. CHUN (obstructive sleep apnea) 02/15/2021 Overview (09/09/2021): Last Assessment & Plan: The patient is scheduled for nocturnal polysomnogram CPAP titration study on March 26. The patient will begin CPAP therapy after that study is completed. Last Assessment & Plan: Patient continue to wear her CPAP at 6 cm water pressure while sleeping. Patient's DME is [employer]. Primary insomnia 09/28/2020 Overview (09/09/2021): Last Assessment & Plan: The patient will continue with cognitive behavior therapy and start CPAP therapy after her nocturnal polysomnogram. This should improve her insomnia. Last Assessment & Plan: The patient was asked to cut out her naps. Acute bilateral low back pain without sciatica 0 01/02/2020 Arthropathy of right sacroiliac joint 01/02/2020 Arthropathy of right sacroiliac joint 01/02/2020 Strain of right piriformis muscle 01/02/2020 Strain of left piriformis muscle 01/02/2020 Chronic instability of first MCP joint, right Diabetes mellitus ([facility]) 06/04/2018 Overview (06/04/2018): diet-controlled Thumb pain 03/01/2018 Vaginal dryness, menopausal 08/31/2017 Hematuria, microscopic 08/14/2017 Yeast vaginitis 07/12/2017 Pyelonephritis 07/03/2017 Calculus of kidney 06/22/2017 Adult celiac disease ([facility]) 03/01/2017 Cholelithiases 02/28/2017 Angular cheilitis 03/03/2016 Atrophic kidney 04/03/2015 Overview (06/05/2018): Transitioned From: Nonfunctioning kidney Disorder of kidney and ureter 11/04/2014 Personal history of tobacco use 11/04/2014 Overview (09/09/2021): Last Assessment & Plan: Chantix was reordered. The patient is aware [...] smoking history at the end of November. Degenerative disc disease, cervical 02/12/2014 Overview (06/04/2018): Transitioned From: Cervical disc herniation Resolved Problems Problem Noted Date Diagnosed Date Resolved Date Screening for colon cancer 06/19/2024 0 07/01/2024 Screening for colon cancer 02/05/2024 1 Stiffness due to immobility 04/05/2022 05/16/2024 Allergic rhinitis 08/31/2017 05/16/2024 Deficient knowledge of dietary regimen 07/11/2017 05/17/2022 Hospital discharge follow-up 07/11/2017 2020 Lower abdominal pain 07/05/2017 021 Toe deformity, acquired 03/03/201603/08 Influenza vaccine needed 04/03/201503/2020 Alcohol abuse 11/04/2014 02/26/2021 Overview (06/05/2018): social Backache 11/04/2014 04/29/2021 Sinusitis 04/16/2014 05/17/2022 Colon cancer screening 06/26/201201/16 Encounters Date Type Department Care Team Description 07/15/2024 Scan HEALTH INFO SRVCS Scanned, Doc Med Group 07/15/2024 Telephone [facility] Family formerly [facility] Sports Medicine [facility] [address] [place] [address] Tamela Madera APNP Referral 06/19/2024 Telephone [facility] Multispecialty Care - [facility] [address] [facility], [address] [place] [address] Aaron Mcdonald MD Prior Authorization (Colonoscopy-[id number]) 06/06/2024 MyChart Message Enc [facility] Sports Medicine [facility] [address] [place] [address] Tamela Madera APNP Truliconelia 05/16/2024 1:40 PM AUTO MECHANICS INSTRUCTOR Office Visit [facility] Family [facility] Sports Medicine [facility] [address] [place] [address] Tamela Madera APNP Ear Problem (Runny nose, congestion, cough, BL[place], ear pain, Rt worse then Lt, ST since May 06 Neg home covid, flu test, tried OTC meds and nothing is helping ) 05/16/2024 Travel 04/24/2024 1:50 PM AUTO MECHANICS INSTRUCTOR - 04/24/2024 11:59 PM AUTO MECHANICS INSTRUCTOR Hospital Encounter [facility] [place] [address] Tamela Madera APNP Discharge Disposition: Home or Self Care (Routine Discharge) 04/24/2024 1:00 PM AUTO MECHANICS INSTRUCTOR Office Visit [facility] Medical [facility] Family formerly [facility] Sports Medicine [facility] [address] [place] [address] Tamela Madera APNP Knee Pain (Pain behind knee radiating up leg and down to ankle.); Derm Problem (Bump on top of ribs right side, feels bruised.) 04/24/2024 Telephone [facility] [address] [place] [address] Tamela Madera APNP Results 04/24/2024 Travel from Last 3 Months Immunizations Name Administration Dates Next Due Afluria 36 MONTHS+ (Prefille d Syringe IIV4) 03/04/2019 Fluzone 6 Months+ Quad (0.5 mL Prefilled Syringe) 04/29/2021,01/30/2020 Influenza (FluMist) 03/17/2011 Influenza (Generic) 03/04/2019, 6,02/01/2014,2012,04/14/2006,03/30/2005,02/28/2003,1 05/27/2001,05/27/2001 Influenza Adult (Generic) 04/07/2022,,02/10/2018,2016,04/03/2015 Pneumococcal (Pneumovax 23) 12/03/2020 Pneumococcal (Prevnar 13) 09/18/2019 Pneumococcal (Prevnar 20) 06/27/2022 Tdap (Generic) 06/03/2016,05/08/2016 Family History Medical History Relation Comments Drug Abuse Brother Cancer Father Breast Cancer Maternal Aunt great aunt Diabetes Maternal Grandmother Colon polyps Mother Breast Cancer Other cousin Relation Status Comments Brother Father Maternal Aunt Maternal Grandmother Mother Other Social History Tobacco Use Types Packs/Day Years Used Date Smoking Tobacco: Former Cigarettes Q uit: 02/03/1987 Passive Smoke Exposure: Past Smokeless Tobacco: Never Tobacco Cessation:Counseling Given: Yes Comments:Quit February 03 at 9 pm Alcohol Use Standard Drinks/Week Comments [...] Sign Reading Time Taken Comments Blood Pressure 110/82 05/16/2024 1:34 PM AUTO MECHANICS INSTRUCTOR Pulse 88 05/16/2024 1:34 PM AUTO MECHANICS INSTRUCTOR Temperature 36.4 C (97.5 F) 05/16/2024 1:34 PM AUTO MECHANICS INSTRUCTOR Respiratory Rate 17 05/16/2024 1:34 PM AUTO MECHANICS INSTRUCTOR Oxygen Saturation 99% 05/16/2024 1:34 PM AUTO MECHANICS INSTRUCTOR Inhaled Oxygen Concentration - - Weight 63.5 kg (140 lb) 05/16/2024 1:34 PM AUTO MECHANICS INSTRUCTOR Height 157.5 cm (5' 2) 05/16/2024 1:34 PM AUTO MECHANICS INSTRUCTOR Body Mass Index 25.61 05/16/2024 1:34 PM AUTO MECHANICS INSTRUCTOR Plan of Treatment Upcoming Encounters Date Type Department Care Team (Latest Contact Info) Description 01/30/2025 7:30 AM CDT Hospital Encounter [facility] [place], [place] [id number] Aaron Mcdonald MD [address] [id number] 01/30/2025 7:30 AM CDT - 01/30/2025 8:00 AM CDT Surgery [facility] Endo/[facility] [place], [place] [id number] Aaron Mcdonald MD [address] [place] [id number] COLONOSCOPY SCREENING Scheduled Procedures Name Priority Associated Diagnoses Date/Ti me COLONOSCOPY SCREENING Screening for colon cancer Hx of colonic polyps 01/30/2025 7:30 AM CDT Health Maintenance Due Date Last Done Comments Cervical Cancer Screening Pap Smear (Age 30 to 64) Every 3 Years 1965 Kidney Health Evaluation 1965 Hepatitis C 01/16/1982 Cervical Cancer Screening Pap with HPV Testing (Age 30 to 64) Every 5 Years 01/16/1994 Cervical Cancer Screening with HPV 01/16/1994 Zoster Vaccines (1 of 2) 01/16/2014 Diabetes: Retinopathy Eye Exam 01/23/2023 01/23/2021 COVID-19 Vaccine ( season) 2024 07/25/2020, 07/04/2020 RSV Immunization or 60+ Years (1 - Risk 60-74 years 1-dose series) 2024 Influenza Adult (#1) 2024 04/07/2022, 04/29/2021, 01/30/2020, Additional history exists PHQ-2 (Physician [place]) 05/08/2024 02/05/2024 Annual Physical 08/30/2024 08/31/2023, 06/09, 04/29/2021, Additional history exists Lipid Panel 08/31/2024 09/01/2023, 06/08, 07/29/2022, Additional history exists Hemoglobin A1C 10/11/2024 04/12/2024, 08/07, 06/20/2023, Additional history exists Colorectal Cancer Screening Colonoscopy (10 Years) 02/25/2025 02/25/2015 Mammogram Screening 08/17/2025 08/18/2023, 08/10/2022, 10/27/2020, Additional history exists DTaP, Tdap and Td Vaccines (3 - Td or Tdap) 06/03/2026 06/03/2016, 05/08/2016 Pneumococcal Vaccine: Pediatrics (0 to 5 Years) and At-Risk Patients (6 to 64 Years) Completed 06/27/2022, 12/03/2020, 09/18/2019 Meningococcal B Vaccine Aged Out No l onger eligible based on patient's age to complete this topic Meningococcal Vaccine Aged Out No zachery jose eligible based on patient's age to complete this topic RSV Immunizations Under 20 Months Aged Out No longer eligible based on patient's age to complete this topic Medical Devices Implanted Type Area Medical Technician Device Identifier Shelf Expiration Date Model / Serial / Lot Decellularized Dermis 4.0 X 4.0 Cm Implanted:Qty: 1 on 02/09/2022 by Bryan Mancilla MD at [facility] [employer] Graft Right: Thumb [facility] [id number] 07/14/2024 [id number] / [id number] / Procedures Procedure Name Priority Date/Time Associated Diagnosis Comments USV SHONNA DUPLEX LOW EXT LT STAT 04/24/2024 2:57 PM AUTO MECHANICS INSTRUCTOR Pain of left calf XR CHEST PA+LAT Routine 04/24/2024 2:08 PM AUTO MECHANICS INSTRUCTOR Rib pain on right side HEMOGLOBIN, GLYCOSYLATED Routine 04/12/2024 Pain in both feet LIPID PANEL Routine 09/01/2023 8:23 AM CDT Healthcare maintenance Screening for hyperlipidemia MG SCREENING W JAGDEEP RADHA DIGI Routine 08/18/2023 2:17 PM CDT Encounter for screening mammogram for malignant neoplasm of breast DIABETIC RETINOPATHY EXAM (POSITIVE)(SCAN ORDER) Routine 01/23/2021 COLONOSCOPY Routine 02/25/2015 12:00 AM CDT from Last 3 Months or Most Recently Relevant to Health Maintenance Results * USV SHONNA DUPLEX LOW EXT LT (04/24/2024 2:57 PM AUTO MECHANICS INSTRUCTOR) Anatomical Region Laterality Modality Vascular Ultraso und 04/24/2024 2:27 PM AUTO MECHANICS INSTRUCTOR Narrative 04/25/2024 11:24 PM AUTO MECHANICS INSTRUCTOR VENOUS DUPLEX IMAGING LEFT LOWER EXTREMITY VASCULAR LAB Pat.Name: CHAR EVANS Pat.ID: [id number] .Date: 04/24/2024 Exam Time: 2:27:00 PM Study Type:TISHA VS Venous Duplex Leg Lt Age: 9 1965,59Y Sex: F Sonogrphr: Annie Naylor [facility] Pat. Stat.:Outpatient History / Clinical:Left posterior knee and calf pain x 3 days. No prior Procedures: Pro scale, Color Doppler imaging, Doppler Spectral Analysis Race: W ++++++++++++++++++++++++++++++++++++ SUMMARY: ++++++++++++++++++++++++++++++++++++ Left leg: There are NO apparent, deep or superficial vein, ACUTE character venous filling defects visualized in the femoral, popliteal, deep calf or proximal saphenous veins. Resting venous flow is normal phasic proximally. No valve reflux with compression maneuvers is detected in the femoral and popliteal veins. No evidence of Reed's cyst noted. Right leg LIMITED: Resting venous flow is normal phasic at the common femoral. No valve reflux with compression maneuvers is detected in the common femoral vein. Preliminary findings reported to [facility]ago. CONCLUSION: Normal study left lower extremity, with no evidence of acute deep or superficial vein thrombosis. There is no significant reflux detected. <Electronic Signature> 04/25/2024 11:24 PM Reji Sheth M.D. Procedure Note Reji Sheth MD - 04/25/2024 VENOUS DUPLEX IMAGING LEFT LOWER EXTREMITY VASCULAR LAB Pat.Name: CHAR EVANS Pat.ID: [id number] .Date: 04/24/2024 Exam Time: 2:27:00 PM Study Type:TISHA VS Venous Duplex Leg Lt Age: 8 1965,59Y Sex: F Sonogrphr: Annie Naylor [facility] Pat. Stat.:Outpatient History / Clinical:Left posterior knee and calf pain x 3 days. No prior Procedures: Pro scale, Color Doppler imaging, Doppler Spectral Analysis Race: W ++++++++++++++++++++++++++++++++++++ SUMMARY: ++++++++++++++++++++++++++++++++++++ Left leg: There are NO apparent, deep or superficial vein, ACUTE character venous filling defects visualized in the femoral, popliteal, deep calf or proximal saphenous veins. Resting venous flow is normal phasic proximally. No valve reflux with compression maneuvers is detected in the femoral and popliteal veins. No evidence of Reed's cyst noted. Right leg LIMITED: Resting venous flow is normal phasic at the common femoral. No valve reflux with compression maneuvers is detected in the common femoral vein. Preliminary findings reported to Mago. CONCLUSION: Normal study left lower extremity, with no evidence of acute deep or superficial vein thrombosis. There is no significant reflux detected. <Electronic Signature> 04/25/2024 11:24 PM Reji Sheth M.D. Tamela Madera [facility] Final Result * XR CHEST PA+LAT (04/24/2024 2:08 PM AUTO MECHANICS INSTRUCTOR) Anatomical Region Laterality Modality Chest Radiographic Beatris ging 04/24/2024 3:04 PM AUTO MECHANICS INSTRUCTOR Impressions 04/24/2024 3:06 PM AUTO MECHANICS INSTRUCTOR IMPRESSION: No acute cardiopulmonary abnormality. If symptoms persist follow-up rib radiographs recommended. Referred By: Interpreted By: Og Santiago MD, 04/24/2024 3:04 PM Narrative 04/24/2024 3:06 PM AUTO MECHANICS INSTRUCTOR [facility] [address] [place], [place] [address] Procedure(s): XR CHEST PA+LAT Date of service: 04/24/2024 2:01 PM Provided clinical information: 59 years, Female, right rib pain lower lateral pain Procedure and materials: PA and lateral Comparison studies: March 23, 2021 Findings: Cardiac silhouette is within normal limits. The lungs are expanded and clear of any consolidations. Calcified granuloma right upper lung. No blunting of the costophrenic angles to suggest effusions. Procedure Note Og Santiago MD - 04/24/[address] [address] Procedure(s): XR CHEST PA+LAT Date of service: 04/24/2024 2:01 PM Provided clinical information: 59 years, Female, right rib pain lowerlateral pain Procedure and materials: PA and lateral Comparison studies: March 23, 2021 Findings: Cardiac silhouette is within normal limits. The lungs are expanded andclear of any consolidations. Calcified granuloma right upper lung. Noblunting of the costophrenic angles to suggest effusions. IMPRESSION: No acute cardiopulmonary abnormality. If symptoms persist follow-up rib radiographs recommended. Referred By: Interpreted By: Og Santiago MD, 04/24/2024 3:04 PM [facility] Final Result * HEMOGLOBIN, GLYCOSYLATED (04/12/2024) HGB A1C 6.4 % [facility] 04/12/2024 [facility] Final Result [facility] [address] [place] [address], * (ABNORMAL) LIPID PANEL (09/01/2023 8:23 AM CDT) CHOLESTEROL 91 <200 mg/dL [facility] HDL 47(L) > OR = 50 mg/dL [facility] TRIGLYCERIDES 96 <150 mg/dL [facility] LDL (CALCULATED) 26 mg/dL (calc) [facility] Comment: Reference range: <100 Desirable range <100 mg/dL for primary prevention; <70 mg/dL for patients with CHD or diabetic patients with > or = 2 CHD risk factors. LDL-C is now calculated using the Austin calculation, which is a validated novel method providing better accuracy than the Friedewald equation in the estimation of LDL-C. Mark PARKER et al. SHAYNE. 2013;310(19): 7600-3177 (http://education.[employer]faq/HUB678) CHOL/HDL RATIO 1.9 <5.0 (calc) [facility] NON HDL CHOLESTEROL 44 <130 mg/dL (calc) [facility] Comment: For patients with diabetes plus 1 major ASCVD risk factor, treating to a non-HDL-C goal of <100 mg/dL (LDL-C of <70 mg/dL) is considered a therapeutic option. 09/01/2023 8:23 AM CDT 09/02/2023 5:43 AM CDT Narrative Resulting Agency Comment Performing Organization Information: Site ID: [place] [facility] Address: [id number] [place] [id number] Director: Yunier Ricks MD [facility] Final Result [facility] [id number] [facility] [id number] [place] [address], [place] * MG SCREENING W JAGDEEP RADHA DIGI (08/18/2023 2:17 PM CDT) Anatomical Region Laterality Modality Breast Bilateral Mammography 08/18/2023 2:33 PM CDT Impressions 08/18/2023 2:34 PM CDT ===== IMPRESSION: ===== 1. Stable mammographic appearance with no new findings to suggest malignancy in either breast. Assessment: ACR BI-RADS 1 - NEGATIVE Recommendation: 1:Routine Screening Bilateral Comments: Ordered By: TAMELA MADERA Interpreted By: Kenroy Sargent MD, 08/18/2023 2:33 PM Narrative 08/18/2023 2:34 PM CDT Examination: Digital bilateral screening mammogram with 3D Tomosynthesis Exam Date/Time: 08/18/2023 2:08 PM Reason For Exam: screening No prior breast procedures. No personal history of breast cancer. No first- degree relatives with breast cancer. No current complaints. Comparison: Mammograms from 08/10/2022 10/27/2020 07/19/2019 Technique: Digital screening mammography of both breasts was performed in addition to 3-D Tomosynthesis technique. This study was read with the assistance of a computer-aided detection system. Tissue density: The breast tissue is heterogeneously dense, which may obscure small masses. Findings: Overall parenchymal pattern unchanged from prior studies. There is no new focal asymmetry, dominant mass lesion, area of skin thickening, or cluster of suspicious appearing calcifications in either breast to suggest malignancy. us [facility] Final Result * DIABETIC RETINOPATHY EXAM (POSITIVE)(SCAN) (01/23/2021) us Documents Scanned SCANNING Final Result [facility] * Colonoscopy (02/25/2015 12:00 AM CDT) 02/25/2015 02/25/2015 Narrative [facility] TO EPIC CONVERSION - 02/25/2015 12:00 AM CDT Documented hx of procedure Procedure Note Hill Barba MD - 03/11/2018 Documented hx of procedure us Generic Conversion Md BARBA GI PROCEDURE ORDERABLES Final Result [facility] TO EPIC CONVERSION from Last 3 Months or Most Recently Relevant to Health Maintenance Insurance [employer] Advance Directives * Full Code (Latest Code Status on File) Date Activated Date Inactivated Comments 07/03/2017 6:14 AM 07/05/2017 7:15 PM Care Teams Grey Percher Relationship Specialty Start Date End Date Tamela Madera APNP [address] [place] [address] PCP - General NURSE PRACTITIONER 07/23/19 [place] [address] [place] [phone] HEMATOLOGY/ONCOLOGY 12/15/21
--- OUTSIDE RECORDS SUMMARY | 2024-07-23 12:36 | XMS_ITS | Encounter Summary ---
Author Organization [facility] Address Critical access hospital[address] [place] [address] Care Team Providers Care Nursing Director Name Role Phone Dia Madera Primary Care Provider [phone] Misha Bishop MD Unavailable [phone] Encounter Details Date Type Department Care Team (Late st Contact Info) Description 01/09/2024 MyChart Message Enc [facility] [place] [address] [place] [address] Dia Madera APNP [address] [place] [address] Dexter has COVID Social History Tobacco Use Types Packs/Day Years Used Date Smoking Tobacco: Former Cigarettes Q uit: 02/03/1987 Passive Smoke Exposure: Past Smokeless Tobacco: Never Comments:Quit February 03 a t 9 pm Alcohol Use Standard Drinks/Week Comments Not Currently 0 (1 standard drink = 0.6 oz pur e alcohol) Drink occasionally PHQ-2 Answer Date Recorded Patient Health Questionnaire-2 Score 0 08/31/2023 Comments No Sex and Gender Information Value Date Recorded Sex Assigned at Not on file Legal Sex Female 3:06 PM CDT Gender Identity Not on file Sexual Orientation Not on file documented as of this encounter Plan of Treatment Upcoming Encounters Date Type Department Care Team (Latest Contact Info) Description 01/30/2025 7:30 AM CDT Hospital En[facility] [place] [address] [facility] [address] 01/30/2025 7:30 AM CDT - 01/30/2025 8:00 AM CDT Surgery [facility] [address] Aaron Mcdonald MD [address] [address] COLONOSCOPY SCREENING Scheduled Procedures Name Priority Associated Diagnoses Date/Ti me COLONOSCOPY SCREENING Screening for colon cancer Hx of colonic polyps 01/30/2025 7:30 AM CDT documented as of this encounter Visit Diagnoses Not on filedocumented in this encounter Additional Health Concerns Assessment Noted Time PHQ-9 Depression Total Score: 0 08/31/19 24 1:55 PM CDT documented as of this encounter Care Teams Nursing Director Relationship Specialty Start Date End Date Dia Madera APNP [address] [place] [id number] PCP - General NURSE PRACTITIONER 07/23/19 Misha Bishop MD [address] [place] [phone] HEMATOLOGY/ONCOLOGY 12/15/21 documented as of this encounter
[2024-07-25 20:02] LABS: Lupus dRVVT Screen 34 sec (< OR = 45); PTT-LA Screen 34 sec (< OR = 40)
[2024-07-28 05:04] LABS: Anti Cardio Antibody IgM <2.0 MPL-U/mL; Anti Cardiolipin Antibody IgA 2.2 APL-U/mL; Anti Cardiolipin Antibody IgG <2.0 GPL-U/mL
== END 2024-07-23 11:01 | disposition home or self-care (01) ==
LOC: ANHLAB 11:00
PROVIDERS: PCP Nurse Practitioner; Visit Provider Internal Medicine Hematology & Oncology
DX: R76.0 Raised antibody titer (principal)
CPT/HCPCS: 36415; 85597; 85598; 85613; 85670; 85730; 86146; 86147

== ENCOUNTER 2025-02-06 11:33 | Outpatient (CLI) | payer OTHER, SELFPAY ==
--- OUTSIDE RECORDS SUMMARY | 2025-02-06 11:30 | XMS_ITS | Encounter Summary ---
Author Organization [facility] [employer] [facility] Address [address] [place] [address] Care Team Providers Care Er Rn Name Role Phone Unavailable Primary Care Provider Unavailabl e Encounter Details Date Type Department Care Team (Late st Contact Info) Description 02/06/2025 11:30 AM CDT Office Visit [facility] Oncology and Hematology - [place] [address] [facility] [address] [place] [address] Misha Bishop MD [address] [facility] [address] [place] [address] Arrived Social History Tobacco Use Types Packs/Day Years Used Date Smoking Tobacco: Every Day Cigarettes Smokeless Tobacco: Never Comments:trying to quit Alcohol Use Standard Drinks/Week Comments Yes 0 (1 standard drink = 0.6 oz pur e alcohol) occasional Comments Unknown Sex and Gender Information Value Date Recorded Sex Assigned at Not on file Legal Sex Female 9:28 AM CDT Gender Identity Not on file Sexual Orientation Not on file documented as of this encounter Last Filed Vital Signs Vital Sign Reading Time Taken Comments Blood Pressure 118/85 02/06/2025 11:51 AM CDT Pulse 95 02/06/2025 11:50 AM CDT Temperature 36.6 C (97.8 F) 02/06/2025 11:50 AM CDT Respiratory Rate 15 02/06/2025 11:50 AM CDT Oxygen Saturation 98% 02/06/2025 11:50 AM CDT Inhaled Oxygen Concentration - - Weight 71.9 kg (158 lb 9.6 oz) 02/06/2025 11:50 AM CDT Height - - Body Mass Index 29.01 10/08/2021 10:33 AM CDT documented in this encounter Plan of Treatment Not on file documented as of this encounter Visit Diagnoses Not on filedocumented in this encounter
[2025-02-06 11:50] LABS: Hematocrit 42.0 % (37.0-47.0); Hemoglobin 13.8 g/dL (12.0-15.0); Immature Granulocyte Percent A 0.5 % (0-0.5); Lymphocytes Absolute Auto 2.52 K/mm3 (0.9-3.2); Mean Corpuscular HGB Conc 32.9 g/dl (32-36); Mean Corpuscular Hemoglobin 31.2 pg (26-34); Mean Corpuscular Volume 94.8 fl (80-100); Nucleated Red Blood Cells Absolute Auto 0.000 K/mm3 (0.0-0.012); Nucleated Red Blood Cells Perc 0.0 % (0.0-0.2); Platelet Count Result 209 k/mm3 (150-375); Red Blood Count 4.43 M/mm3 (4.2-5.4); White Blood Count 8.2 K/mm3 (4.5-10.0)
[2025-02-06 11:54] LABS: Blood Urea Nitrogen 12 mg/dL (8-26); Carbon Dioxide 31 mmol/L (22-30); Chloride 104 mmol/L (98-109); Estimated Glomerular Filt Rate 56; Glucose 110 mg/dL (70-105); Ionized Calcium (POC) 1.22 mmol/L (1.11-1.31); Potassium 4.7 mmol/L (3.5-4.9); Sodium 143 mmol/L (138-146)
--- OUTSIDE RECORDS SUMMARY | 2025-02-06 11:54 | XMS_ITS | Encounter Summary ---
Author Organization [facility] Address [address] [facility] [place] [address] Care Team Providers Care Cotton Breeder Name Role Phone JaimeDia james Primary Care Provider [phone] Encounter Details Date Type Department Care Team (Late st Contact Info) Description 12/13/2024 Results Follow-Up [facility] - Endocrinology [address] [place] [address], [place] [address] Josef Qiu MD [address] [place] [address] [place] [address] Social History Tobacco Use Types Packs/Day Years Used Date Smoking Tobacco: Never Assessed Comments Unknown Sex and Gender Information Value Date Recorded Sex Assigned at Not on file Legal Sex Female 1:56 PM HAND REAMER Gender Identity Not on file Sexual Orientation Not on file documented as of this encounter Plan of Treatment Not on file documented as of this encounter Visit Diagnoses Not on filedocumented in this encounter Care Teams Cotton Breeder Relationship Specialty Start Date End Date Dia Madera [address] [place] [address] PCP - General Nurse Practitioner 10/19/23 documented as of this encounter
--- OUTSIDE RECORDS SUMMARY | 2025-02-06 11:54 | XMS_ITS | Encounter Summary ---
Author Organization [facility] - [facility] Address [address] [place] [address] Care Team Providers Care Portal Administrator Name Role Phone Dia Madera Primary Care Provider [phone] Misha Bishop MD Unavailable [phone] Encounter Details Date Type Department Care Team (Late st Contact Info) Description 06/22/2023 [employer] Message Enc [facility] Medical Group Family and Sports Medicine - [place] [address] [place], [facility] Provider Ozempic Social History Tobacco Use Types [...] Information Value Date Recorded Sex Assigned at Female 10/16/2024 3:22 PM CDT Legal Sex Female 3:06 PM CDT Gender Identity Not on file Sexual Orientation Not on file documented as of this encounter Plan of Treatment Not on file documented as of this encounter Visit Diagnoses Not on filedocumented in this encounter Additional Health Concerns Assessment Noted Time PHQ-9 Depression Total Score: 8 06/27/19 23 3:09 PM PIPE BENDER documented as of this encounter Care Teams Portal Administrator Relationship Specialty Start Date End Date Poirot, Dia, APNP [address] [place] [address] PCP - General NURSE PRACTITIONER 07/23/19 Misha Bishop MD [address] [address] HEMATOLOGY/ONCOLOGY 12/15/21 documented as of this encounter
--- OUTSIDE RECORDS SUMMARY | 2025-02-06 11:54 | XMS_ITS | Clinical Summary ---
Author Organization [facility] Riley palumbo [facility] Address [address] [place] [address] Care Team Providers Care Garnett Fixer Name Role Phone Unavailable Primary Care Provider [...] Encounters Date Type Department Care Team Description 02/06/2025 11:30 AM CDT Office Visit [facility] Oncology and Hematology - [place] [address] [place] [address] Misha Bishop MD Arrived 12/10/2024 External Device Data STL ABSTRACTION Provider, Abstract [...] 9.6 oz) 02/06/2025 11:50 AM CDT Height 157.5 cm (5' 2) 10/08/2021 10:33 AM CDT Body Mass Index 29.01 10/08/2021 10:33 AM CDT Plan of Treatment Health Maintenance Due Date Last Done Comments DIABETES ANNUAL FOOT EXAM 01/16/1982 DIABETES ANNUAL RETINAL EXAM 01/16/1982 DIABETES MICROALBUMIN ANNUAL SCREEN 01/16/1982 LDL CHOLESTEROL ANNUAL 01/16/1982 HPV/Cotest (21-29) 01/16/1985 CERVICAL CANCER SCREENING 01/16/1994 HPV/Cotest (30-65) 01/16/1994 PAP SMEAR 01/16/1994 FIT-DNA Q 3 years 01/16/2009 FIT/FOBT Q 1 year 01/16/2009 Flex Sig/CT Colonography Q 5 years 01/16/2009 ZOSTER VACCINE (1 of 2) 01/16/2014 RSV VACCINE (60+ or ) (1 - Risk 60-74 years 1-dose series) 2024 BREAST CANCER SCREENING 08/17/2024 08/18/19, 08/18/2023, 08/10/2022, Additional history exists INFLUENZA VACCINE (#1) 2024 , 01/30/2020, 02/10/2018, Additional history exists COVID-19 Vaccine (2024-2 6 season) 2025 03/12/2021, 07/25/2020, 07/04/2020 DIABETES HBA1C Q 6 MONTHS 06/15/2025 12/13/2024, 10/2023 DTAP/TDAP/TD VACCINES (3 - T d or Tdap) 06/03/2026 06/03/2016, 05/08/2016 COLORECTAL SCREENING 01/30/2035 01/30/2025, 01/30/2025, 02/25/2015 Colorectal Cancer Screening 01/30/2035 Insurance [facility]
--- OUTSIDE RECORDS SUMMARY | 2025-02-06 11:54 | XMS_ITS | Encounter Summary ---
Author Organization [facility] Address [address] [place] [address] Care Team Providers Care New Car Salesperson Name Role Phone Dia Madera Primary Care Provider [phone] Misha Bishop MD Unavailable Encounter Details Date Type Department Care Team (Late st Contact Info) Description 06/01/2022 [employer] Message Enc [facility] Medical Group Diabetes and Endocrinology [place] [address] [facility] [place] [address] [place] [address] [address] [place] Social History Tobacco Use Types Packs/Day [...] Recorded In the last 10 days, have marisel u been in contact with someone who was confirmed or suspected to have Coronavirus/COVID-19? No / Unsure 06/02/2022 2:54 PM HUMIDIFIER MAINTENANCE WORKER documented as of this encounter Plan of Treatment Not on file documented as of this encounter Visit Diagnoses Not on filedocumented in this encounter Additional Health Concerns Assessment Noted Time PHQ-9 Depression Total Score: 7 04/29/20 21 9:48 AM HUMIDIFIER MAINTENANCE WORKER documented as of this encounter Care Teams New Car Salesperson Relationship Specialty Start Date End Date Dia Madera APNP [address] [place] [address] PCP - General NURSE PRACTITIONER 07/23/19 Misha Bishop MD [address] [address] HEMATOLOGY/ONCOLOGY 12/15/21 documented as of this encounter
--- OUTSIDE RECORDS SUMMARY | 2025-02-06 11:54 | XMS_ITS | Clinical Summary ---
Author Organization [facility] Health Address [address] [place] [address] Care Team Providers Care Fisher Hoop Net Name Role Phone Unavailable Primary Care Provider [...]
--- OUTSIDE RECORDS SUMMARY | 2025-02-06 11:54 | XMS_ITS | Encounter Summary ---
Author Organization [facility] Address [facility] [place] [address] Care Team Providers Care Reconditioning Associate Name Role Phone Dia Madera Primary Care Provider [phone] Misha Bishop MD Unavailable [phone] Encounter Details Date Type Department Care Team (Late st Contact Info) Description 01/09/2024 [employer] Message Enc [facility] Medical Group Family and Sports Medicine - [place] [address] [place] [address] Dia Madera APNP [address] [place] [address] Dexter has COVID Social History Tobacco Use [...] documented as of this encounter Care Teams Reconditioning Associate Relationship Specialty Start Date End Date Dia Madera APNP [address] [place] [address] PCP - General NURSE PRACTITIONER 07/23/19 Misha Bishop MD [address] [address] HEMATOLOGY/ONCOLOGY 12/15/21 documented as of this encounter
--- OUTSIDE RECORDS SUMMARY | 2025-02-06 11:54 | XMS_ITS | Encounter Summary ---
Author Organization [facility] Health Address [address] [place] [address] Care Team Providers Care Electronics Worker Name Role Phone Unavailable Primary Care Provider Unavailabl e Prior Encounters Date Type Department Care Team Description 05/27/2019 Converted CPS Chart Documents [facility] [address] [place] [address] <No scans attached> 05/27/2019 Converted 13x Documents [facility] [address] [place] [address] <No scans attached> Plan of Treatment Not on file Procedures Procedure Name Priority Date/Time Associated Diagnosis Comments 20 PONTIC - PFG - POST Routine 9 2:00 AM CLOTHER IN 18 PONTIC - PFG - POST Routine 9 2:00 AM CLOTHER IN 19 RETAINER CROWN - PFG - POST Routine 04/02/2019 2:00 AM CLOTHER IN 10 CORE BUILDUP, INCLUDING ANY PINS WHEN REQUIRED Routine 04/02/2019 2:00 AM CLOTHER IN 3 MOD AMALGAM 3 SURFACE Routine 04/02/20 19 2:00 AM CLOTHER IN 2 MO AMALGAM 2 SURFACE Routine 9 2:00 AM CLOTHER IN 18 ENDODONTIC THERAPY, MOLAR TOOTH (EXCLUDING FINAL MORAVIAN) Routine 04/02/2019 2:00 AM CLOTHER IN 14 ENDODONTIC THERAPY, MOLAR TOOTH (EXCLUDING FINAL MORAVIAN) Routine 04/02/2019 2:00 AM CLOTHER IN 10 ENDODONTIC THERAPY, ANTERIOR TOOTH (EXCLUDING FINAL MORAVIAN) Routine 04/02/2019 2:00 AM CLOTHER IN 18 CROWN PFM POST Routine 04/02/2019 2:0 0 AM CLOTHER IN 15 CROWN PFM POST Routine 04/02/2019 2:0 0 AM CLOTHER IN 14 CROWN PFM POST Routine 04/02/2019 2:0 0 AM CLOTHER IN 31 CROWN PFM POST Routine 04/02/2019 2:0 0 AM CLOTHER IN 30 CROWN PFM POST Routine 04/02/2019 2:0 0 AM CLOTHER IN ORAL HYGIENE INSTRUCTIONS Routine 2018 2:00 AM CLOTHER IN TOPICAL APPLICATION OF FLUORIDE VARNISH Routine 04/02/2019 2:00 AM CLOTHER IN PROPHYLAXIS - ADULT Routine 04/02/2019 2 :00 AM CLOTHER IN COMPREHENSIVE ORAL EVALUATION - NEW OR ESTABLISHED PATIENT Routine 04/02/2019 2:00 AM CLOTHER IN PANORAMIC RADIOGRAPHIC IMAGE Routine 04/02/2019 2:00 AM CLOTHER IN INTRAORAL PHOTO Routine 04/02/2019 2:00 AM CLOTHER IN INTRAORAL PHOTO Routine 04/02/2019 2:00 AM CLOTHER IN INTRAORAL PHOTO Routine 04/02/2019 2:00 AM CLOTHER IN INTRAORAL PHOTO Routine 04/02/2019 2:00 AM CLOTHER IN Visit Diagnoses Not on file
--- OUTSIDE RECORDS SUMMARY | 2025-02-06 11:54 | XMS_ITS | Encounter Summary ---
Author Organization [facility] Address [address] [place] [address] Care Team Providers Care Oral Surgery Technician Name Role Phone Dia Madera Primary Care Provider [phone] Misha Bishop MD Unavailable [phone] Encounter Details Date Type Department Care Team (Late st Contact Info) Description 07/18/2023 [employer] Message Enc [facility] Medical Group Pediatrics . [place] [address] [place] [address] [facility] Schedule Appointment: Annual Physical Social History [...] Total Score: 8 06/27/19 23 3:09 PM HOSPITAL RECRUITER documented as of this encounter Care Teams Oral Surgery Technician Relationship Specialty Start Date End Date Dia Madera APNP [address] [place] [address] PCP - General NURSE PRACTITIONER 07/23/19 Misha Bishop MD [address] [address] HEMATOLOGY/ONCOLOGY 12/15/21 documented as of this encounter
--- OUTSIDE RECORDS SUMMARY | 2025-02-06 11:54 | XMS_ITS | Patient Health Record ---
Author Organization [facility] Address [address] [place], [place] [address] Care Team Providers Care Last Repairer Helper Name Role Phone BenijeanneCUCA Unavailable [phone] Shabbir Turner Unavailable Unavailable Reason For Referral No Information Plan Of Treatment No Information Insurance Providers Payer Name Payer Address Payer Phone Subscriber Number Group Number Insured Name Patient Relationship to Insured Coverage Start Date Coverage End Date Emma Montenegro (Regions 1-6) [address] [place], [place] [id number] D[place]RIS [place] Spouse - patient is the spouse of the insured
--- OUTSIDE RECORDS SUMMARY | 2025-02-06 11:54 | XMS_ITS | Encounter Summary ---
Author Organization [facility] Address [facility] [place] [address] Care Team Providers Care Construction Technology Instructor Name Role Phone Ewa Spencer NP Primary Care Provider [phone] [phone] Madera Primary Care Provider [phone] Misha Bishop MD Unavailable [phone] Encounter Details Date Type Department Care Team (Latest Contact Info) Description 01/01/2018 Abstract [facility] Medical Group Hill Merino MD Social History [...] Rule Out 03/23/2021 03/23/2021 03/23/2021 9:32 AM FOURDRINIER MACHINE OPERATOR COVID-19 Rule Out 03/23/2021 03/23/2021 03/24/2021 1:28 AM FOURDRINIER MACHINE OPERATOR documented as of this encounter Care Teams Construction Technology Instructor Relationship Specialty Start Date End Date Ewa Spencer NP PCP - General NURSE PRACTITIONER 04/19/17 07/22/19 Dia Madera APNP [address] [place] [address] PCP - General NURSE PRACTITIONER 07/23/19 Misha Bishop MD [address] [phone] HEMATOLOGY/ONCOLOGY 12/15/21 documented as of this encounter
--- OUTSIDE RECORDS SUMMARY | 2025-02-06 11:54 | XMS_ITS | Encounter Summary ---
Author Organization [facility] Address [address] [place] [address] Care Team Providers Care Heavy Equipment Plumbing Supervisor Name Role Phone Dia Madera Primary Care Provider [phone] Misha Bishop MD Unavailable [phone] Encounter Details Date Type Department Care Team (Late st Contact Info) Description 06/26/2023 [employer] Message Enc [facility] Medical Group Family and Sports Medicine - [place] [address] [place] [address] Dia Madera APNP [address] [place] [address] Nephrology Referral Social History Tobacco Use Types [...] Total Score: 8 06/27/19 23 3:09 PM SCREEN OPERATOR documented as of this encounter Care Teams Heavy Equipment Plumbing Supervisor Relationship Specialty Start Date End Date Dia Madera APNP [address] [place] [address] PCP - General NURSE PRACTITIONER 07/23/19 Misha Bishop MD [address] [place] [address] HEMATOLOGY/ONCOLOGY 12/15/21 documented as of this encounter
--- OUTSIDE RECORDS SUMMARY | 2025-02-06 11:54 | XMS_ITS | Clinical Summary ---
Author Organization [facility] [place] Address [address] [place] [address] Care Team Providers Care Data Processing Consultant Name Role Phone Dia Madera Primary Care Provider [phone] Source Comments [facility],non-owned Affiliates and Associated Physician Practices is amultiple site organization consisting of ambulatory clinics and hospital sitesin [place], [place], [place] and [place]. This disclosure is being madepursuant to the Care Everywhere program and may not contain all information available regarding this patient. Last updated 18.[facility] Allergies No known active allergies Medications * Be aware that medications may not be up to date on this document. Alwaysverify current medications with the patient. aspirin (Aspirin) 81 MG chew tablet Take 1 (one) tablet by mouth once daily 10/19/2023 Active Trulicity 1.5 MG/0.5ML injection 1.5 (one and one-half) mg every 7 days 10/19/2023 Active cyclobenzaprine (Flexeril) 10 MG tablet Take 1 (one) tablet by mouth at bedtime 09/11/2024 Active ketoconazole (Nizoral) 2 % cream Apply to affected area as needed 01/22/2024 Active pantoprazole EC (Protonix) 40 MG tablet Take 1 (one) tablet by mouth once daily 11/21/2024 Active Encounters Date Type Department Care Team Description 12/13/2024 1:00 PM CDT Office Visit [facility] - Endocrinology [address] [place] [address] Josef Qiu MD Type 2 diabetes mellitus with hyperglycemia, with long-term current use of insulin (HCC) (Primary Dx); Adrenal nodule (HCC); Autoimmune disease (HCC); Vitamin B12 deficiency 12/13/2024 11:50 AM CDT - 12/13/2024 11:59 PM CDT Hospital Encounter [facility] OP DRAW STATION [address] [place] [address] Discharge Disposition: Home or Self Care 12/13/2024 Results Follow-Up [facility] - Endocrinology [address] [place] [phone] Josef Qiu MD 12/13/2024 Travel 12/10/2024 Telephone [facility] - Endocrinology [address] [place] [phone] Josef Qiu MD Question from Last 3 Months Social History Tobacco Use Types Packs/Day Years Used Date Smoking Tobacco: Never Assessed Comments Unknown Sex and Gender Information Value Date Recorded Sex Assigned at Not on file Legal Sex Female 1:56 PM EXTRUSION MANAGER Gender Identity Not on file Sexual Orientation Not on file Last Filed Vital Signs Vital Sign Reading Time Taken Comments Blood Pressure 121/81 12/13/2024 1:03 PM CDT Pulse 85 12/13/2024 1:03 PM CDT Temperature - - Respiratory Rate - - Oxygen Saturation 98% 12/13/2024 1:03 PM CDT Inhaled Oxygen Concentration - - Weight 63.3 kg (139 lb 9.6 oz) 12/13/2024 1:03 P M CDT Height 157.5 cm (5' 2) 12/13/2024 1:03 PM CDT Body Mass Index 25.53 12/13/2024 1:03 PM CDT Plan of Treatment Health Maintenance Due Date Last Done Comments COLOGUARD (AGES 45-75) - COLON CA SCREENING 1964 COLON MONITORING 1964 COLONOSCOPY - COLON CA SCREENING 1964 CT COLONOGRAPHY - COLON CA SCREENING 1964 Colorectal Cancer Screening 1964 FIT - COLON CA SCREENING 1964 FLEX SIG - COLON CA SCREENING 1964 HIV SCREENING 01/16/1979 HEPATITIS C SCREENING 01/12/1982 DTAP/TDAP/TD VACCINES (1 - Tdap) 01/16/1983 PNEUMOCOCCAL VACCINE 50+ (1 of 2 - PCV) 01/16/1983 PAP SMEAR 01/16/1985 ZOSTER VACCINE (1 of 2) 01/16/2014 DEPRESSION SCREENING 05/08/2024 COVID-19 VACCINE ( season) 2025 03/12/2021, 07/25/2020, 07/04/2020 INFLUENZA VACCINE (#1) 2025 , 04/29/2021, 01/30/2020, Additional history exists MAMMOGRAM 08/17/2025 08/18/2023, 08/06, 08/10/2022, Additional history exists SCREENING FOR DIABETES 12/14/2027 12/13/2024, 2024 LIPID TESTING 12/13/2029 12/13/2024, 08/07, 06/20/2023 Respiratory Syncytial Virus (RSV) Vaccine Pt: [...] Procedure Name Priority Date/Time Associated Diagnosis Comments LIPID PROFILE Routine 12/13/2024 1:38 PM CDT Type 2 diabetes mellitus with hyperglycemia, with long-term current use of insulin (HCC) COMPREHENSIVE METABOLIC PANEL Routine 12/13/2024 1:38 PM CDT Type 2 diabetes mellitus with hyperglycemia, with long-term current use of insulin (HCC) CBC W/O DIFFERENTIAL Routine 12/13/2024 1:38 PM CDT Type 2 diabetes mellitus with hyperglycemia, with long-term current use of insulin (HCC) VITAMIN B12 Routine 12/13/2024 1:38 PM CDT Vitamin B12 deficiency T4 FREE Routine 12/13/2024 1:38 PM CDT Autoimmune disease (HCC) TSH Routine 12/13/2024 1:38 PM CDT Autoimmune disease (HCC) HEMOGLOBIN A1C - POINT OF CARE (AMB) [facility] Routine 12/13/2024 1:09 PM CDT Type 2 diabetes mellitus with hyperglycemia, with long-term current use of insulin (HCC) from Last 3 Months Results * CBC W/O DIFFERENTIAL (12/13/2024 1:38 PM CDT) Pathologist [facility] WBC 10.2 4.0 - 10.7 x10E9/L 12/13/2024 2:33 PM [facility] RBC Count 4.59 3.90 - 5.20 x10E12/L 12/13/2024 2:33 PM [facility] Hemoglobin 14.1 11.9 - 15.8 g/dL 12/13/2024 2:33 PM [facility] Hematocrit 43.2 34.8 - 46.1 % 12/13/2024 2:33 PM [facility] MCV 94.1 80.0 - 98.0 fL 12/13/2024 2:33 PM [facility] MCH 30.7 26.7 - 33.6 pg 12/13/2024 2:33 PM [facility] MCHC 32.6 31.7 - 36.3 g/dL 12/13/2024 2:33 PM [facility] RDW-CV 13.6 11.3 - 14.8 % 12/13/2024 2:33 PM [facility] Platelet Count 249 150 - 420 x10E9/L 12/13/2024 2:33 PM [facility] MPV 10.5 7.8 - 11.4 fL 12/13/2024 2:33 PM [facility] Blood BLOOD SPECIMEN / Unknown Lab Venipuncture / Unknown 12/13/2024 1:38 PM CDT 12/13/2024 2:19 PM CDT us Josef Qiu MD LAB - HEMATOLOGY ORDERABLES Fi nal Result [facility] [address] [place] [phone], [facility] [phone] * (ABNORMAL) COMPREHENSIVE METABOLIC PANEL (12/13/2024 1:38 PM CDT) BUN 13 7 - 26 mg/dL 12/13/2024 2:54 PM [facility] Creatinine 0.93 0.56 - 0.96 mg/dL 12/13/2024 2:54 PM [facility] Sodium 142 136 - 145 mmol/L 12/13/2024 2:54 PM [facility] Potassium 5.1(H) 3.5 - 4.5 mmol/L 12/13/2024 2:54 PM [facility] Chloride 111(H) 98 - 107 mmol/L 12/13/2024 2:54 PM [facility] CO2 27 22 - 29 mmol/L 12/13/2024 2:54 PM [facility] Glucose 89 70 - 99 mg/dL 12/13/2024 2:54 PM [facility] Calcium 9.4 8.4 - 10.2 mg/dL 12/13/2024 2:54 PM [facility] Protein Total 7.4 6.0 - 8.3 g/dL 12/13/2024 2:54 PM [facility] Albumin 4.4 3.4 - 5.0 g/dL 12/13/2024 2:54 PM [facility] Bilirubin Total 0.6 0.2 - 1.2 mg/dL 12/13/2024 2:54 PM [facility] Alkaline Phosphatase 100 40 - 150 U/L 12/13/2024 2:54 PM [facility] ALT 27 5 - 55 U/L 12/13/2024 2:54 PM [facility] AST 25 5 - 34 U/L 12/13/2024 2:54 PM [facility] Anion Gap 4(L) 6 - 16 12/13/2024 2:54 PM T [facility] BUN/Creatinine Ratio 14 7 - 23 12/13/2024 2:54 PM T [facility] Osmolality Calculated 294 275 - 295 mOsm/kg 12/13/2024 2:54 PM T [facility] Albumin/Globulin Ratio 1.5 1.1 - 2.3 12/13/2024 2:54 PM [facility] eGFR by CKD-EPI 70(L) >=90 mL/min/1.7 3 m2 12/13/2024 2:54 PM T [facility] Comment:Estimated Glomerular Filtration Rate (eGFR) calculated using the CKD-EPI Creatinine Equation (2020), per the National Kidney Foundation and [place] Society of Nephrology recommendations. Blood BLOOD SPECIMEN / Unknown Lab Venipuncture / Unknown 12/13/2024 1:38 PM CDT 12/13/2024 2:19 PM CDT Josef Qiu MD LAB - CHEMISTRY ORDERABLES Fin al Result Performing Organization Address City/[facility]/ZIP Co de Phone Number [address] [address], [facility] [phone] * VITAMIN B12 (12/13/2024 1:38 PM CDT) Vitamin B12 327 213 - 816 pg/mL 12/13/2024 3:19 PM CDT [facility] Blood BLOOD SPECIMEN / Unknown Lab Venipuncture / Unknown 12/13/2024 1:38 PM CDT 12/13/2024 2:19 PM CDT Josef Qiu MD LAB - CHEMISTRY ORDERABLES Fin al Result [address] [address], [place] [phone] * TSH (12/13/2024 1:38 PM CDT) Pathologist [facility] TSH 1.556 0.350 - 4.940 uIU/mL 12/13/2024 3:19 PM CDT [facility] Blood BLOOD SPECIMEN / Unknown Lab Venipuncture / Unknown 12/13/2024 1:38 PM CDT 12/13/2024 2:19 PM CDT Josef Qiu MD LAB - CHEMISTRY ORDERABLES Fin al Result Performing Organization Address City/[facility]/ZIP Co de Phone Number [address] [address], [place] [phone] * T4 FREE (12/13/2024 1:38 PM CDT) [facility] T4 Free 0.9 0.7 - 1.5 ng/dL 12/13/2024 3:19 PM CDT [facility] Blood BLOOD SPECIMEN / Unknown Lab Venipuncture / Unknown 12/13/2024 1:38 PM CDT 12/13/2024 2:19 PM CDT us Josef Qiu MD LAB - CHEMISTRY ORDERABLES Fin al Result Performing Organization Address [facility] Co de Phone Number [address] [address], [place] [phone] * LIPID PROFILE (12/13/2024 1:38 PM CDT) [facility] Cholesterol Total 101 <200 mg/dL 12/13/2024 2:54 PM CDT [facility] HDL 46 >40 mg/dL 12/13/2024 2:54 PM CDT [facility] Comment: ATP III Classification of HDL Cholesterol: <40 mg/dL: Considered a major risk factor. >60 mg/dL: Considered a negative risk factor. LDL Calculated 39 <100 mg/dL 12/13/2024 2:54 PM CDT [facility] Comment: ATP III Classification of LDL Cholesterol: <100 mg/dL: Optimal 100 - 129 mg/dL: Near Optimal/Above Optimal 130 - 159 mg/dL: Borderline High 160 - 189 mg/dL: High >190 mg/dL: Very High LDL is calculated using the Friedewald equation. Triglycerides 82 <150 mg/dL 12/13/2024 2:54 PM CDT [facility] Comment: ATP III Classification of Triglycerides: <150 mg/dL: Normal 150 - 199 mg/dL: Borderline High 200 - 400 mg/dL: High >500 mg/dL: Very High Blood BLOOD SPECIMEN / Unknown Lab Venipuncture / Unknown 12/13/2024 1:38 PM CDT 12/13/2024 2:19 PM CDT Josef Qiu MD LAB - CHEMISTRY ORDERABLES Fin al Result [facility] [address] [place] [address], [place] [phone] * HEMOGLOBIN A1C - POINT OF CARE (AMB) [facility] (12/13/2024 1:09 PM CDT) Hemoglobin A1c POCT 6.1 % [address] BLOOD SPECIMEN / Unknown 12/13/2024 1:09 PM CDT Josef Qiu MD LAB - POINT OF CARE ORDERABLES Final Result Performing Organization Address [facility]/ZIP Co de Phone Number [address] [place] [address], [place] [phone] from Last 3 Months Insurance [facility] Care Teams Data Processing Consultant Relationship Specialty Start Date End Date Dia Madera [address] [place] [address] PCP - General Nurse Practitioner 10/19/23
--- OUTSIDE RECORDS SUMMARY | 2025-02-06 11:54 | XMS_ITS | Encounter Summary ---
Author Organization [facility] Address [facility] [place] [address] Care Team Providers Care Security Installer Name Role Phone Dia Madera Primary Care Provider [phone] Misha Bishop MD Unavailable [phone] Encounter Details Date Type Department Care Team (Late st Contact Info) Description 04/16/2024 Proenza Schouer Message Enc [facility] Medical Group Family and Sports Medicine - [place] [address] [place] [address] Dia Madera APNP [address] [place] [address] Posting of results Social History Tobacco Use [...] documented as of this encounter Care Teams Security Installer Relationship Specialty Start Date End Date Dia Madera APNP [address] [place] [address] PCP - General NURSE PRACTITIONER 07/23/19 Misha Bishop MD [address] [address] HEMATOLOGY/ONCOLOGY 12/15/21 documented as of this encounter
--- OUTSIDE RECORDS SUMMARY | 2025-02-06 11:54 | XMS_ITS | Encounter Summary ---
Author Organization [facility] Address [facility] [place] [address] Care Team Providers Care Topper Press Operator Name Role Phone Ewa Spencer CAPACITOR ASSEMBLER Primary Care Provider [phone] Dia Madera Primary Care Provider [phone] Misha Bishop MD Unavailable [phone] Encounter Details Date Type Department Care Team (Late st Contact Info) Description 08/14/2017 Community Orders [facility] EPICCARE LINK Zane Lemus MD [facility] [address] [address] Social History Tobacco Use Types [...] Rule Out 03/23/2021 03/23/2021 03/23/2021 9:32 AM DEPUTY SHERIFF/INVESTIGATOR COVID-19 Rule Out 03/23/2021 03/23/202103/2403/24/2021 1:28 AM DEPUTY SHERIFF/INVESTIGATOR documented as of this encounter Care Teams Topper Press Operator Relationship Specialty Start Date End Date Ewa Spencer NP PCP - General NURSE PRACTITIONER 04/19/17 07/22/19 Dia Madera APNP [address] [place] [address] PCP - General NURSE PRACTITIONER 07/23/19 Misha Bishop MD [address] [address] HEMATOLOGY/ONCOLOGY 12/15/21 documented as of this encounter
--- OUTSIDE RECORDS SUMMARY | 2025-02-06 11:54 | XMS_ITS | Encounter Summary ---
Author Organization [facility] Address [address] [place] [address] Care Team Providers Care Pastry Cook Helper Name Role Phone Dia Madera Primary Care Provider [phone] Misha Bishop MD Unavailable [phone] Encounter Details Date Type Department Care Team (Late st Contact Info) Description 08/02/2023 [employer] Message Enc [facility] Medical Group Pediatrics . [place] [address] [place] [address] [facility] Provider Schedule Appointment: Overdue Physical Social History [...] Total Score: 8 06/27/19 23 3:09 PM DERRICK OPERATOR documented as of this encounter Care Teams Pastry Cook Helper Relationship Specialty Start Date End Date Dia Madera APNP [address] [place] [address] PCP - General NURSE PRACTITIONER 07/23/19 Misha Bishop MD [address] [address] HEMATOLOGY/ONCOLOGY 12/15/21 documented as of this encounter
--- OUTSIDE RECORDS SUMMARY | 2025-02-06 11:54 | XMS_ITS | Encounter Summary ---
Author Organization [facility] Address [address] [place] [address] Care Team Providers Care Rigging Loft Mechanic Name Role Phone Dia Madera Primary Care Provider [phone] Misha Bishop MD Unavailable [phone] Encounter Details Date Type Department Care Team (Late st Contact Info) Description 08/08/2023 [employer] Message Enc [facility] Medical Group Family and Sports Medicine - [place] [address] [place] [address] Dia Madera APNP [address] [place] [address] UTI Social History Tobacco Use Types Packs/Day [...] Total Score: 8 06/27/19 23 3:09 PM DIE DRAWING CHECKER documented as of this encounter Care Teams Rigging Loft Mechanic Relationship Specialty Start Date End Date Dia Madera APNP [address] [place] [address] PCP - General NURSE PRACTITIONER 07/23/19 [place] [address] [place] [address] HEMATOLOGY/ONCOLOGY 12/15/21 documented as of this encounter
--- OUTSIDE RECORDS SUMMARY | 2025-02-06 11:55 | XMS_ITS | Clinical Summary ---
Author Organization [facility] Address [address] [place] [address] Care Team Providers Care Retail Grocer Name Role Phone Ewa Spencer NP Primary Care Provider [phone] Allergies Active Allergy Reactions Criticality Noted Date [...] 06/17/2021 Assessment & Plan (05/23/2022 2:03 PM PER DIEM): Patient continue clonazepam 0.5 mg p.o. Q bedtime. Assessment & Plan (02/08/2022 3:43 PM CDT): Patient continue clonazepam 0.5 mg p.o. Q bedtime. Assessment & Plan (08/16/2021 3:11 PM CDT): Patient continue clonazepam 0.5 mg p.o. Q bedtime. Assessment & Plan (06/17/2021 4:24 PM PER DIEM): I have ordered Klonopin 0.5 mg at bedtime to see if this helps with the sleepwalking and sleep eating. This medication may also make her drowsy enough to help with the insomnia symptoms CHUN (obstructive sleep apnea) 02/15/2021 Assessment & Plan (05/23/2022 2:03 PM PER DIEM): I did send an order over to [...] care. Assessment & Plan (06/17/2021 4:25 PM PER DIEM): Due to the patient stating that her pressure seems to be too high, I have decreased the pressure to 6 cm water pressure. The patient denied need for supplies. DME company [employer]. I have also ordered the patient to [...] 09/28/2020 Assessment & Plan (05/23/2022 2:01 PM PER DIEM): The patient states that her sleeping has improved since she has stop smoking. Assessment & Plan (02/08/2022 4:14 PM CDT): The patient states that her sleeping has improved since she has stop smoking. Assessment & Plan (08/16/2021 3:11 PM CDT): The patient was asked to cut out her naps. Assessment & Plan (06/17/2021 4:25 PM PER DIEM): Patient will continue with cognitive behavior therapy [...] a brochure that is published by the [place] [employer] of [employer] regarding understanding insomnia. She will follow-up here in 1 month. Personal history of tobacco use 09/28/2020 Assessment & Plan (05/23/2022 2:02 PM PER DIEM): The patient did stop smoking on January. [...] November. Assessment & Plan (06/17/2021 4:26 PM PER DIEM): The patient obtained a lung cancer screening CT at [facility], we are waiting the results. The patient [...] 09/28/2020 Assessment & Plan (05/23/2022 2:03 PM PER DIEM): Patient continue to use Advair one puff [...] Medical History Medical History Date Comments Diabetes Nasal congestion Social History Tobacco Use Types [...] on file Legal Sex Female 12:19 AM PER DIEM Gender Identity Not on file Sexual Orientation Not on file Obstetrics History Last Filed Vital Signs Vital Sign Reading Time Taken Comments Blood Pressure 110/78 05/23/2022 1:29 PM PER DIEM Pulse 86 05/23/2022 1:29 PM PER DIEM Temperature 36.1 C (97 F) 05/23/2022 1:29 PM PER DIEM Respiratory Rate 18 05/23/2022 1:29 PM PER DIEM Oxygen Saturation 97% 05/23/2022 1:29 PM PER DIEM Inhaled Oxygen Concentration - - Weight 65.3 kg (144 lb) 05/23/2022 1:29 PM PER DIEM Height 157.5 cm (5' 2) 05/23/2022 1:29 PM PER DIEM Body Mass Index 26.34 05/23/2022 1:29 PM PER DIEM Plan of Treatment Health Maintenance Due Date Last Done Comments Breast Cancer Screening-Mammogram 1965 Cervical Cancer Screening 1965 Colon Cancer Screening-Colonoscopy 1965 Depression Screening 1965 Hepatitis C Screening 1965 Hepatitis B Screening 01/16/1982 Regular Well Visit/Exam 18-64 01/16/1982 Zoster Vaccine (1 of 2) 01/16/2014 Covid-19 Vaccine (3 - season) 2025 07/25/2020, 07/04/2020 Influenza Vaccine (#1) 2025 , 04/29/2021, 01/30/2020, Additional history exists DTaP/Tdap/Td Vaccine (2 - Td or Tdap) 05/08/2026 05/08/2016 Pneumococcal vaccine <65 Aged Out 09/18/2019 No longer eligible based on patient's age to complete this topic Insurance [facility] Care Teams Retail Grocer Relationship Specialty Start Date End Date Ewa Spencer NP [address] [place] [address] PCP - General 03/10/19
--- OUTSIDE RECORDS SUMMARY | 2025-02-06 11:55 | XMS_ITS | Encounter Summary ---
Author Organization [facility] Address [facility] [place] [address] Care Team Providers Care Differential Repairer Name Role Phone Dia Madera Primary Care Provider [phone] Misha Bishop MD Unavailable [phone] Reason for Referral * Consultation (Urgent) - Authorized Specialty Diagnoses / Procedures Referred By Contac t Referred To Contact Diagnoses Raised antibody titer Procedures OFFICE/OUTPATIENT NEW LOW MDM 30-44 MINUTES OFFICE/OUTPT VISIT,NEW,LEVL IV OFFICE/OUTPT VISIT,NEW,LEVL V OFFICE/OUTPT VISIT,EST,LEVL III OFFICE/OUTPT VISIT,EST,LEVL IV OFFICE/OUTPT VISIT,EST,LEVL V Dia Madera APNP [address] [place] [address] Phone: tel: fax: Misha Bishop MD [address] [facility] [address] [place] [address] Phone: tel: fax: Referral ID Status Reason Start Date Expiration Date Visits Requested Visits Authorized [id number] Authorized Specialty Services 02/06/2025 02/06/2026 6 6 Scheduling Instructions Appt on 02/06/25 with Misha Bishop MD Fax #- [phone] Encounter Details Date Type Department Care Team (Late st Contact Info) Description 02/05/2025 Orders Only [facility] Medical Group Family and Sports Medicine - [place] [address] [place] [address] [facility] jamesV[facility] [address] [place] [address] Social History Tobacco Use Types Packs/Day Years [...] as of this encounter Plan of Treatment Scheduled Referrals Name Type Priority Associated Diagnoses Orde r Schedule Ambulatory referral to Hematology/Oncology (OTHER) Referral Routine Raised antibody titer Ordered: 02/05/2025 documented as of this encounter Visit Diagnoses Diagnosis Raised antibody titer- Primary Other and unspecified nonspecific immunological findings documented in this encounter Additional Health Concerns Assessment Noted Time PHQ-9 Depression Total Score: 0 08/31/19 24 1:55 PM CDT documented as of this encounter Care Teams Differential Repairer Relationship Specialty Start Date End Date Dia Madera APNP [address] [place] [address] PCP - General NURSE PRACTITIONER 07/23/19 Misha Bishop MD [facility] [address] [place] [address] HEMATOLOGY/ONCOLOGY 12/15/21 documented as of this encounter
--- OUTSIDE RECORDS SUMMARY | 2025-02-06 11:55 | XMS_ITS | Clinical Summary ---
Author Organization [facility] Address [facility] [place] [address] Care Team Providers Care Card Grinder Helper Name Role Phone Tamela Madera VJ Primary Care Provider [phone] Misha Bishop MD Unavailable [phone] Allergies Active Allergy Reactions Criticality Noted Date Comments Egg-Derived Products GI Upset 09/15/2017 Gluten Meal Nausea and Vomiting 07/28/2017 Medications Cholecalciferol (VITAMIN D3) 50 MCG (1999) Tab 1 Active aspirin EC (ECOTRIN) 81 MG tablet Take 1 tablet (81 mg total) by mouth daily. 2 Active albuterol sulfate HFA 108 (90 Base) MCG/ACT inhalerIndicati ons:Seasonal asthma ([facility]) Inhale 2 puffs into the lungs every 6 (six) hours as needed for Wheezing. 18 g 1 4 Active ketoconazole (NIZORAL) 2 % creamIndication s:Fungal skin disease Apply topically daily. 30 g 2 4 Active dulaglutide (TRULICITY) 3 MG/0.5ML injectionIndica tions:Type 2 diabetes mellitus with hyperglycemia, without long-term current use of insulin ([facility]/HCC HHS/HCC) Inject 3 mg into the skin once a week. 6 mL 3 5 Active Sod Picosulfate-Mag Ox-Cit Acd (CLENPIQ) 10-3.5-12 MG-GM -GM/175ML SolutionIndicat ions:Screening for colon cancer,Hx of colonic polyps Take 175 mLs by mouth 2 (two) times a day. Per GI instructions 350 mL 5 Active pantoprazole EC (PROTONIX) 40 MG tabletIndicatio ns:Gastroesopha geal reflux disease without esophagitis Take 1 tablet (40 mg total) by mouth daily. 90 tablet 3 5 Active predniSONE (DELTASONE) 10 mg tabletIndicatio ns:Chronic bilateral low back pain with right-sided sciatica Start 60 mg today and decrease by one tablet each day until complete. 21 tablet 5 Active Active Problems Problem Noted Date Diagnosed Date Brachial (cervical) neuritis 09/11/2024 Cervical spasm of uterus ([facility]/HCC) 09/11/2024 Overview (09/11/2024): with radicular symptoms--possible disc hernation Will do c-spine films, may need MRI if symptoms do not resolve over the next couple of weeks PT consult home exercise in the mean time--h/o given Naprosyn 500mg bid prn #60 r0 Flexeril 10mg tid prn #45 Cervicalgia 09/11/2024 Cyst of left ovary 09/11/2024 Hx of colonic polyps 02/05/2024 Antiphospholipid syndrome ([facility]) 10/08/2021 REM sleep behavior disorder 06/17/2021 [...] right Diabetes mellitus ([facility]) 06/04/2018 Overview (06/04/2018): diet-controlled Thumb pain 03/01/2018 Vaginal dryness, menopausal 08/31/2017 Hematuria, microscopic 08/14/2017 Yeast vaginitis 07/12/2017 Pyelonephritis 07/03/2017 Calculus of kidney 06/22/2017 Adult celiac disease ([facility]) 03/01/2017 Cholelithiases 02/28/2017 Angular cheilitis 03/03/2016 [...] 06/19/2024 0 07/01/2024 Screening for colon cancer 06/19/2024 0 11/04/2024 Screening for colon cancer 06/19/2024 0 02/03/2025 Screening for colon cancer 02/05/2024 1 Stiffness [...] Encounters Date Type Department Care Team Description 02/05/2025 Orders Only [facility] Family and Sports Medicine - [place] [address] [place] [address] Tamela MaderaVJ 02/03/2025 Results Follow-Up [facility] [place] [address] Awa Mcdonald MD Pathology 01/30/2025 7:30 AM CDT - 01/30/2025 8:00 AM CDT Surgery [facility] [place] [address] Awa Mcdonald MD COLONOSCOPY WITH REMOVAL OF SIGMOID COLON POLYPS AND RECTAL POLYPS VIA COLD SNARE 01/30/2025 7:29 AM CDT Anesthesia Event [facility] [address] Jann Almaraz MD 01/30/2025 6:21 AM CDT - 01/30/2025 9:03 AM CDT Hospital Encounter [facility] [place] [address] Awa Mcdonald MD Discharge Disposition: Home or Self Care (Routine Discharge) 01/30/2025 Travel 01/29/2025 Telephone [facility] Multispecialty Care - [facility] [address] [facility], [address] [place] [phone] Awa Mcdonald MD Error; Question 01/21/2025 MyChart Message Enc [facility] Family [facility] [address] [place] [address] Tamela Madera APNP Next step - foot 2025 MyChart Message Enc [facility] Family [facility] [address] [place] [address] Tamela Madera APNP Reminder to Schedule Annual Visit 2025 Results Follow-Up [facility] [address] [place] [address] Tamela Madera APNP COMPREHENSIVE METABOLIC PANEL 01/16/2025 10:00 AM CDT Laboratory Only [facility] [address] [place] [address] Tamela Madera APNP 01/16/2025 Travel 01/07/2025 3:45 PM CDT Office Visit [facility] - Physical Therapy [address] [place] [address] Tamela Madera APNP Koehler, Andrea H, PT Back Pain 01/07/2025 Travel 12/20/2024 3:45 PM CDT Office Visit [facility] Physical [facility] [address] [place] [address] Tamela Madera APNP Koehler, Andrea H, PT Back Pain (Re eval) 12/20/2024 Travel 12/17/2024 3:45 PM CDT Office Visit [address] [address] Tamela Madera APNP Mueller, Abbie T, MORTGAGE COORDINATOR Back Pain 12/17/2024 Travel 12/16/2024 Telephone [facility] Multispecialty Care - [address], [address] [place] [address] Awa Mcdonald MD Prior Authorization (Colonoscopy [id number]) 12/15/2024 [employer] [facility] [place] Message Enc [address] [address] Tamela Madera APNP Testing 12/11/2024 3:00 PM CDT Office Visit [address] [address] Tamela Madera APNP Koehler, Andrea H, PT Back Pain 12/11/2024 Travel 12/11/[address] [address] Tamela Madera APNP Referral 12/06/2024 3:45 PM CDT Office Visit [facility] Physical [address] [address] Tamela Madera APNP Koehler, Andrea H, PT Back Pain 12/06/2024 Travel 12/03/2024 2:30 PM CDT Office Visit [facility] - Physical Therapy [address] [place] [address] Tamela Madera APNP Koehler, Andrea H, PT Back Pain (Initial Eval) 12/03/2024 Travel 11/21/2024 1:20 PM CDT Office Visit [facility] Family and Sports Medicine [facility] [address] [place] [phone] Tamela Madera APNP Back Pain (Pain started Monday morning. Having muscle spasms and now travelling across her lower back) 11/21/2024 Travel 11/18/2024 MyChart Message Enc [facility] Family and Sports [facility] [address] [place] [phone] Tamela Madera APNP Back from Last 3 Months Immunizations Immunization Administration Dates Next Due Afluria 36 MONTHS+ (Prefille d Syringe IIV4) 03/04/2019 Fluzone 6 Months+ Quad (0.5 mL Prefilled Syringe) 04/29/2021,01/30/2020 Influenza (FluMist) 03/17/2011 Influenza (Generic) 03/04/2019, 6,02/01/2014,2012,04/14/2006,03/30/2005,02/28/2003,1 05/27/2001,05/27/2001 Influenza Adult (Generic) 04/07/2022,,02/10/2018,2016,04/03/2015 Pneumococcal (Pneumovax 23) 12/03/2020 Pneumococcal (Prevnar 13) 09/18/2019 Pneumococcal (Prevnar 20) 06/27/2022 Tdap (Generic) 06/03/2016,05/08/2016 Family History Medical History Relation Comments Drug Abuse Brother Cancer Father Lung and others Early Father 62 Hypertension Father Breast Cancer Maternal Aunt great aunt Diabetes Maternal Grandmother Arthritis Mother Colon polyps Mother Hypertension Mother Breast Cancer Other cousin Asthma Sister Asthma Son Depression Son Relation Status Comments Brother Father Maternal Aunt Maternal Grandmother Mother Alive Other Sister Alive Son Alive Social History Tobacco Use Types Packs/Day [...] Sign Reading Time Taken Comments Blood Pressure 109/71 01/30/2025 8:39 AM CDT Pulse 67 01/30/2025 8:39 AM CDT Temperature 35.8 C (96.5 F) 01/30/2025 8:15 AM CDT Respiratory Rate 18 01/30/2025 8:39 AM CDT Oxygen Saturation 100% 01/30/2025 8:39 AM CDT Inhaled Oxygen Concentration - - Weight 61.2 kg (135 lb) 01/21/2025 10:07 AM CDT Height 157.5 cm (5' 2) 01/21/2025 10:07 AM CDT Body Mass Index 24.69 01/21/2025 10:07 AM CDT Plan of Treatment Health Maintenance [...] 01/16/2014 Diabetes: Retinopathy Eye Exam 01/23/2023 01/23/2021 PHQ-2 (Physician [place]) 05/08/2024 02/05/2024 Annual Physical 08/30/2024 08/31/2023, 06/09, 04/29/2021, Additional history exists COVID-19 Vaccine ( season) 2025 03/12/2021, 07/25/2020, 07/04/2020 Influenza Adult (#1) 2025 04/07/2022, 04/29/2021, 01/30/2020, Additional history exists Hemoglobin A1C 06/15/2025 12/13/2024, 1210/2023, 09/01/2023, Additional history exists Mammogram Screening 08/17/2025 08/18/2023, 08/10/2022, 10/27/2020, Additional history exists Lipid Panel 12/13/2025 12/13/2024, 08/07, 06/20/2023, Additional history exists DTaP, Tdap and Td Vaccines (3 - Td or Tdap) 06/03/2026 06/03/2016, 05/08/2016 Colorectal Cancer Screening Colonoscopy (10 Years) 01/30/2035 01/30/2025, 02/25/2015 RSV Immunization or 60+ Years (1 - 1-dose 75+ series) 01/16/2039 Pneumococcal Vaccine: 50+ Years Completed 06/27/2022, 12/03/2020, 09/18/2019 Meningococcal B Vaccine Aged Out No l onger eligible based on patient's age to complete this topic Meningococcal Vaccine Aged Out No zachery jose eligible based on patient's age to complete this topic RSV Immunizations Under 20 Months Aged Out No longer eligible based on patient's age to complete this topic Medical Devices Implanted Type Area Assistant To The President Device Identifier Shelf Expiration Date Model / Serial / Lot Decellularized Dermis 4.0 X 4.0 Cm Implanted:Qty: 1 on 02/09/2022 by Bryan Mancilla MD at [facility] Graft Right: Thumb [facility] [id number] 07/14/2024 [id number] / [id number] / Procedures Procedure Name Priority Date/Time Associated Diagnosis Comments COLSC FLX W/RMVL OF TUMOR POLYP LESION SNARE TQ 01/30/2025 7:28 AM CDT Screening for colon cancer Hx of colonic polyps POCT GLUCOSE - DOCKED DEVICE Routine 01/30/2025 7:21 AM CDT COLONOSCOPY Routine 01/30/2025 6:49 AM CDT PATHOLOGY Routine 01/30/2025 12:00 AM CDT COMPREHENSIVE METABOLIC PANEL Routine 01/16/2025 9:56 AM CDT Hyperkalemia COLLECTION VENOUS BLOOD VENIPUNCTURE Routine 01/16/2025 9:51 AM CDT Hyperkalemia HEMOGLOBIN, GLYCOSYLATED Routine 04/12/2024 Pain in both [...] Recently Relevant to Health Maintenance Results * POCT glucose (01/30/2025 7:21 AM CDT) GLUCOSE POC 91 70 - 99 mg/dL 01/30/2025 7:23 AM CDT [facility] 01/30/2025 7:21 AM CDT Awa Mcdonald MD POCT ORDERABLES - DEVICE Final R esult [facility] [address] [place] [address], [place] [phone] * Pathology (01/30/2025 12:00 AM CDT) PATHOLOGY [facility] Department of Laboratory Medicine [address] [place] [address] , extension [phone] Pathology Report Surgical Pathology Report Name: CHAR EVANS Specimen #: [id number] Age: 9 1965 (Age: 60) Location: [facility] Sex: F Procedure Date: 01/30/2025 [facility] #: [id number] Date Received: 01/30/2025 Date Reported: 01/31/2025 Provider: AWA MCDONALD MD Source: A: Colon, sigmoid, polyp B: Rectum, polyp Clinical History: Screening for colon cancer and history of colon polyps. FINAL DIAGNOSIS: A. Colon, sigmoid polyps, biopsies: - Hyperplastic polyp. - Additional fragment of colonic mucosa with very mild superficial hyperplastic change. B. Colon, rectal polyps, biopsies: - Fragments of hyperplastic polyp. Gross Description: A. Received in formalin, labeled with a patient label and as sigmoid colon polyps are 2 pieces of pink-magana polypoid tissue 0.2 and 0.3 cm. The specimen is entirely submitted in cassette A1. B. Received in formalin, labeled with a patient label and as rectal polyps are 3 pieces of pink-magana polypoid tissue ranging from 0.3 to 0.4 cm. The specimen is entirely submitted in cassette B1. Gross examination (when applicable), interpretation, and sign out were performed at [facility], [address] [place] [address]. Electronically Signed Out KASH DAMON MD [facility] TISSUE COLON STRUCTURE / Unknown 01/30/2025 7:58 AM CDT Tissue specimen (specimen) SPECIMEN FROM RECTUM / Unknown 01/30/2025 8:01 AM CDT Awa Mcdonald MD PATHOLOGY/CYTOLOGY ORDERABLES Fi nal Result [facility] [address] [place] [address], [id number] * COMPREHENSIVE METABOLIC PANEL (01/16/2025 9:56 AM CDT) GLUCOSE 98 65 - 99 mg/dL [facility] Comment: Fasting reference interval BUN 12 7 - 25 mg/dL [facility] CREATININE S/P/B 0.91 0.50 - 1.05 mg/dL [facility] GFR ESTIMATE 72 > OR = 60 mL/min/1. 73m2 [facility] BUN CREATININE RATIO SEE NOTE: (calc) [facility] Comment: Not Reported: BUN and Creatinine are within reference range. SODIUM S/P/B 143 135 - 146 mmol/L [facility] POTASSIUM S/P/B 4.7 3.5 - 5.3 mmol/L [facility] CHLORIDE S/P/B 103 98 - 110 mmol/L [facility] CO2 28 20 - 32 mmol/L [facility] CALCIUM S/P/B 9.6 8.6 - 10.4 mg/dL [facility] TOTAL PROTEIN S/P/B 6.8 6.1 - 8.1 g/dL [facility] ALBUMIN S/P/B 4.2 3.6 - 5.1 g/dL [facility] GLOBULIN 2.6 1.9 - 3.7 g/dL (calc) [facility] ALBUMIN/GLOBULI N RATIO 1.6 1.0 - 2.5 (calc) [facility] BILIRUBIN TOTAL S/P/B 0.6 0.2 - 1.2 mg/dL [facility] [employer] ALKALINE PHOSPHATASE S/P/B 96 37 - 153 U/L [facility] AST 22 10 - 35 U/L [facility] ALT 22 6 - 29 U/L [facility] 01/16/2025 9:56 AM CDT 2025 4:20 AM CDT Narrative Resulting Agency Comment Performing Organization Information: Site ID: [place] [facility] Address: [address] [place] [phone] Director: Yunier Ricks MD [facility] Final Result [facility] [id number] [place] [phone], * (ABNORMAL) LIPID PANEL (09/01/2023 8:23 AM CDT) CHOLESTEROL 91 <200 mg/dL [facility] HDL 47(L) > OR = 50 mg/dL [facility] TRIGLYCERIDES 96 <150 mg/dL [facility] LDL (CALCULATED) 26 mg/dL (calc) [facility] Comment: Reference range: <100 Desirable range <100 mg/dL for primary prevention; <70 mg/dL for patients with CHD or diabetic patients with > or = 2 CHD risk factors. LDL-C is now calculated using the Austin calculation, which is a validated novel method providing better accuracy than the Friedewald equation in the estimation of LDL-C. Mark PARKER et al. SHAYNE. 2013;310(19): 9086-5326 (http://education.[employer]/faq/VIP672) CHOL/HDL RATIO 1.9 <5.0 (calc) [facility] NON HDL CHOLESTEROL 44 <130 mg/dL (calc) [facility] Comment: For patients with diabetes plus 1 major ASCVD risk factor, treating to a non-HDL-C goal of <100 mg/dL (LDL-C of <70 mg/dL) is considered a therapeutic option. 09/01/2023 8:23 AM CDT 09/02/2023 5:43 AM CDT Narrative Resulting Agency Comment Performing Organization Information: Site ID: [place] Name: [facility] Address: [id number] [place] [address] [place] [address] Director: Yunier Ricks MD [facility] Final Result [facility] [address] [facility] [id number] [place], [place] [address] [address], [place] * MG SCREENING W JAGDEEP RADHA [...] (01/23/2021) us Documents Scanned SCANNING Final Result [facility] * Colonoscopy (02/25/2015 12:00 AM CDT) 02/25/2015 02/25/2015 Narrative [facility] EPIC CONVERSION - 02/25/2015 12:00 AM CDT Documented hx of procedure Procedure Note Hill Barba MD - 03/11/2018 Documented hx of procedure us Generic Conversion Md [facility] PROCEDURE ORDERABLES Final Result [facility] TO EPIC CONVERSION from Last 3 Months or Most Recently Relevant to Health Maintenance Insurance Advance Directives * Full Code (Latest Code Status on File) Date Activated Date Inactivated Comments 07/03/2017 6:14 AM 07/05/2017 7:15 PM Care Teams Card Grinder Helper Relationship Specialty Start Date End Date Tamela Madera APNP [address] [place] [address] PCP - General NURSE PRACTITIONER 07/23/19 Misha Bishop MD [address] [facility] [address] [place] [phone] HEMATOLOGY/ONCOLOGY 12/15/21
--- OUTSIDE RECORDS SUMMARY | 2025-02-06 11:55 | XMS_ITS | Encounter Summary ---
Author Organization [facility] Address [facility] [place] [address] Care Team Providers Care Healthcare Business Analyst Name Role Phone Dia Madera Primary Care Provider [phone] Misha Bishop MD Unavailable [phone] Encounter Details Date Type Department Care Team (Latest Contact Info) Description 2025 Results Follow-Up [facility] Medical Group Family and Sports Medicine - [place] [address] [place] [address] Dia Madera APNP [address] [place] [address] COMPREHENSIVE METABOLIC PANEL Social History Tobacco Use Types Packs/Day Years [...] on file documented as of this encounter Progress Notes * VJ Hemphill - 2025 8:35 AM CDT Liver enzymes back in normal range. documented in this encounter Plan of Treatment Not on file documented as of this encounter Visit Diagnoses Not on filedocumented in this encounter Additional Health Concerns Assessment Noted Time PHQ-9 Depression Total Score: 0 08/31/19 24 1:55 PM CDT documented as of this encounter Care Teams Healthcare Business Analyst Relationship Specialty Start Date End Date Dia Madera APNP [address] [place] [address] PCP - General NURSE PRACTITIONER 07/23/19 Misha Bishop MD [address] [address] HEMATOLOGY/ONCOLOGY 12/15/21 documented as of this encounter
== END 2025-02-06 11:34 | disposition home or self-care (01) ==
LOC: ANHLAB 11:34
PROVIDERS: PCP Nurse Practitioner; Visit Provider Internal Medicine Hematology & Oncology
DX: R76.0 Raised antibody titer (principal)
CPT/HCPCS: 36415; 80047; 85025